=== PATIENT | male | born 1930 | race Caucasian/White ===

== ENCOUNTER 2018-01-29 15:37 | Inpatient (IN) | payer MEDICARE, MEDICAID ==
[2018-01-28 20:45] VITALS: BP 128/81
[~2018-01-29] VITALS: Ht 177.8 cm; Wt 71.7 kg
[~2018-01-29 15:37] MED LIST: ACET-868 PO; CHOL10002 PO; CLOP75TA15 PO; CRAN1TAB3 PO; DOCU100C36 PO; DOCU50LI PO; FERR325T6 PO; LEVO50TA PO; LISI-607 PO; MAGN400O6 PO; METF500T PO; METO25TA20 PO; MULT1CAP34 PO; NA P133E RC; POLY17PO4 PO; PRAZ1CAP2 PO; SIMV20TA2 PO; SITA100T PO
--- NOTE | 2018-01-29 15:40 | NUR ---
PT BIB RA 86 WITH A C/O AMS MORE THAN USUAL. PT IS NOT VERBALIZING, BUT NODDING HEAD TO YES AND NO QUESTIONS. PT HAS 18G IV IN RFA. IV IS PATENT AND BENIGN. BLOOD WAS DRAWN AND STRAIGHT CATH DONE. APPROX 125 ML YELLOW URINE OUTPUT NOTED. SAMPLE SENT TO LAB. DR. RICHARDS IS AT THE BEDSIDE SPEAKING TO THE PT. PT IS ON THE MONITOR AND CONTINUOUS PULSE OX. PT IS ABLE TO MOVE ALL EXTREMITIES. RESP EVEN AND UNLABORED. SKIN IS WARM AND DRY.
[2018-01-29] MEDS ORDERED: AMIN30LI4 PO (16:21)
[2018-01-29] MEDS ORDERED: MULT-447 PO (16:21)
[2018-01-29] MEDS ORDERED: SITA100T PO (16:21)
[2018-01-29] MEDS ORDERED: LEVO88TA5 PO (16:21)
--- NOTE | 2018-01-29 16:22 | NUR ---
Any horton in ED - 01/29/18 at 1623 by AL PT APPEARS TO BE RESTING COMFORTABLY. NO S/S OF PAIN OR DISTRESS NOTED.
--- NOTE | 2018-01-29 16:22 | NUR ---
PT APPEARS TO BE RESTING COMFORTABLY. NO S/S OF PAIN OR DISTRESS NOTED.
--- NOTE | 2018-01-29 16:22 | NUR ---
PT APPEARS TO BE RESTING COMFORTABLY. NO S/S OF PAIN OR DISTRESS NOTED.
[2018-01-29 16:24] LABS: APPEARANCE,URINE Clear (CLEAR); BILIRUBIN,URINE Negative (NEGATIVE); BLOOD, URINE Trace-lysed Ery/uL (NEGATIVE); COLOR,URINE Yellow (YELLOW); KETONES,URINE Negative (NEGATIVE); LEUKOCYTE ESTERASE ,URINE Large (NEGATIVE); NITRITE, URINE Negative (NEGATIVE); PROTEIN,URINE Negative (NEGATIVE); UGLUCOSE Negative (NEGATIVE)
[2018-01-29 16:30] LABS: CALCIUM, SERUM 9.2 mg/dL (8.5-10.1); CARBON DIOXIDE 25 mmol/L (21-32); CHLORIDE 103 mmol/L (98-107); CREATININE 1.6 mg/dL (0.6-1.3); GLUCOSE 136 mg/dL (74-106); POTASSIUM 5.1 mmol/L (3.5-5.1); SODIUM SERUM 135 mmol/L (136-145); UREA NITROGEN, BLOOD 41 mg/dL (7-18)
[2018-01-29 16:33] LABS: BACTERIA,URINE Moderate /HPF (None Seen); RBC,URINE 0-3 /HPF (0-2); SQUAMOUS EPITHELIAL CELL,UR Few /HPF (None Seen); WBC,URINE 80-100 /HPF (0-3)
[2018-01-29 16:34] LABS: INR 0.91 (0.85-1.15)
[2018-01-29 16:36] LABS: ALANINE AMINOTRANSFERASE 18 U/L (12-78); ALBUMIN 3.5 g/dL (3.4-5.0); ALKALINE PHOSPHATASE 86 U/L (46-116); ASPARTATE AMINOTRANSFERASE 19 U/L (15-37); BILIRUBIN,DIRECT 0.1 mg/dL (0.0-0.2); BILIRUBIN,TOTAL 0.4 mg/dL (0.2-1.0); TOTAL PROTEIN, SERUM 7.8 g/dL (6.4-8.2)
[2018-01-29 16:37] LABS: BASOPHILS # (AUTO) 0.1 /CMM (0.0-0.2); BASOPHILS % (AUTO) 0.8 % (0.0-2.0); EOSINOPHILS # (AUTO) 0.3 /CMM (0.0-0.7); EOSINOPHILS % (AUTO) 4.1 % (0.0-6.0); HEMATOCRIT 34 % (39-51); HEMOGLOBIN 11.9 g/dL (13.5-17.5); LYMPHOCYTES # (AUTO) 1.6 /CMM (0.8-4.8); LYMPHOCYTES % (AUTO) 25.6 % (20.0-44.0); MEAN CORPUSCULAR HEMOGLOBIN 34 PG (26.0-33.0); MEAN CORPUSCULAR HGB CONC 35 g/dl (31.0-36.0); MEAN CORPUSCULAR VOLUME 98 fL (80-96); MONOCYTES # (AUTO) 0.7 /CMM (0.1-1.30); MONOCYTES % (AUTO) 11.4 % (2.0-12.0); NEUTROPHILS # (AUTO) 3.7 /CMM (1.8-8.9); NEUTROPHILS % (AUTO) 58.1 % (43.0-81.0); PLATELET COUNT (AUTO) 163 /CMM (150-450); RDW COEFFICIENT OF VARIATION 12.9 (11.5-15.0); RED BLOOD CELL COUNT(AUTO) 3.49 MIL/uL (4.5-6.0); WHITE BLOOD COUNT (AUTO) 6.4 K/uL (4.3-11.0)
[2018-01-29 16:38] LABS: TROPONIN I < 0.017 ng/mL (0.00-0.056)
[2018-01-29] MEDS ORDERED: PIPERACILLIN /TAZOBACTAM 2.25 G in IV D5W 50 ML IV ONE (17:00)
--- NOTE | 2018-01-29 17:00 | NUR ---
PT'S SON, YANET SPICER , ARRIVED AND IS SPEAKING TO THE PT. PT IS MALAY SPEAKING
[2018-01-29] MEDS ORDERED: IV NS 0.9% 500 ML BAG IV ONE (17:30)
[2018-01-29] MEDS ORDERED: ASPIRIN 81 MG TAB.CHEW PO ONE (17:30)
[2018-01-29] MEDS ORDERED: ASPIRIN 81 MG TAB.CHEW ONE (17:40)
--- NOTE | 2018-01-29 17:50 | NUR ---
PT TOLERATED PO WELL
--- NOTE | 2018-01-29 18:01 | NUR ---
PT'S SON, YANET CASTILLO, PLEASE CALL WITH ANY UPDATES. [phone] CELL [phone] WORK
--- NOTE | 2018-01-29 18:02 | NUR ---
PT PUREED FOOD.
--- NOTE | 2018-01-29 18:03 | NUR ---
CALLED THE [facility] FOR PUREED DIABETIC DIET.
--- NOTE | 2018-01-29 18:08 | NUR ---
CALLED [facility] [phone]
--- NOTE | 2018-01-29 18:38 | NUR ---
FEEDING PT DINNER.
--- NOTE | 2018-01-29 18:43 | NUR ---
PT ATE A SMALL AMOUNT OF SOUP AND A FEW SPOONFULS OF APPLESAUCE. PT DOES NOT LIKE THE PUREED FOOD. PT IS ABLE FOR MECHANICAL SOFT.
--- NOTE | 2018-01-29 18:46 | NUR ---
PER PT'S SON, PT IS ON A MECHANICAL SOFT DIET HE ONLY HAS ONE TOOTH.
--- NOTE | 2018-01-29 19:06 | NUR ---
REPORT GIVEN TO NIKUNJ BARFIELD FOR SHANNAN.
--- NOTE | 2018-01-29 20:27 | NUR ---
GAVE REPORT TO NIKUNJ JAIME FOR SHANNAN. PT WILL BE GOING TO ROOM 308-2
[2018-01-29 20:50] VITALS: BP 128/81
--- NOTE | 2018-01-29 20:50 | NUR ---
RN NOTES: NEW ADMISSION FROM ER, ACCOMPANIED BY RN VIA SABI SQUIRES, WITH PERIODS OF CONFUSION AND FORGETFULNESS,PER ENDORSEMENT HE WAS ALTERED SINCE 1459PM FROM [facility] BROUGHT BY AMBULANCE BLOOD [id number];NO FAMILY MEMBER AVAILABLE UPON ADMISSION, UNABLE TO GET CORRECT HISTORY AND INFORMATION, SPEAKS PASHTO ONLY WITH LITTLE WELSH,CANNULA ON LAC#18,RECEIVED NS&ZOSYN IV,ALSO ASPIRIN P.O. FROM ER,ORIENTED TO UNIT AND STAFF, FALL,SAFETY AND ASPIRATION PRECAUTION OBSERVED, BED LOW AND LOCKED, INSTRUCT HOW TO USE THE CALL LIGHT AND KEPT WITHIN EASY REACH,BODY ASSESSMENT DONE, SKIN DISCOLORATION NOTED ON THE RIGHT AND LEFT BUTTOCKS ALSO IN LEFT UPPER EXTREMITY, NO BED SORE,NO EDEMA, UPON AUSCULTATION NOTED SLIGHT WHEEZING ON BOTH UPPER LUNG FIELD WITH OCCASIONAL COUGH.NO SOB OR SIGN OF RESPIRATORY DEPRESSION. ABLE TO SLEEP IN FLAT POSITION WITHOUT ANY DIFFICULTY.WILL CONTINUE TO MONITOR AND KEPT IN CLOSE WATCH.
--- NOTE | 2018-01-29 21:30 | NUR ---
RN NOTES: NOTIFIED DR. CUMMINS REGARDING PATIENT, ADMISSION ORDER VERIFIED AND CARRIED OUT,FOR LABS IN THE MORNING,TROPONIN Q6H X2, TO START NS AT 50ML/HR, ROCEPHINE 1 GM Q DAILY AND ZOSYN 3.375MG Q 8H,TO CONTINUE ALL MEDICATION RECON FROM [facility].CARRIED OUT.
[2018-01-29] MEDS ORDERED: IV NS 0.9% 1,000 ML BAG IV SCH (22:30)
[2018-01-29] MEDS ORDERED: PIPERACILLIN /TAZOBACTAM 3.375 G in IV D5W 50 ML IV ONE (23:00)
[2018-01-29] MEDS ORDERED: CEFTRIAXONE 1 G VIAL ONE (23:10)
[2018-01-29] MEDS ORDERED: PIPERACILLIN /TAZOBACTAM 3.375 G VIAL IV ONE (23:11)
[2018-01-29] MEDS: IV NS 0.9% 1,000 ML BAG IV PRN (23:21)
[2018-01-29] MEDS: CEFTRIAXONE 1 G in IV D5W 50 ML IV SCH (23:21)
--- NOTE | 2018-01-29 23:22 | NUR ---
NIKUNJ NOTES: IVF ON NS AT 50 ML/HR STARTED VIA IV PUMP ALSO 1ST DOSE OF ROCEPHINE 1 GRAM GIVEN.
[2018-01-29] MEDS ORDERED: ACETAMINOPHEN 325 MG TABLET PO PRN (23:30)
[2018-01-30] VITALS: BP 150/80
--- NOTE | 2018-01-30 01:17 | NUR ---
RN NOTES: LEFT MESSAGE TO PATIENT SON THAT HE WAS ALREADY ADMITTED IN [facility] MS 3W BED 308-2.
--- NOTE | 2018-01-30 03:53 | NUR ---
RN NOTES: ASLEEP IN THE NIGHT,KEPT ON CLOSE WATCH AND CHECK AT FREQUENT INTERVALS.NOTED ON AND OFF COUGH IN BETWEEN.
[2018-01-30 04:00] VITALS: BP 153/75
[2018-01-30] MEDS ORDERED: PIPERACILLIN /TAZOBACTAM 3.375 G in IV D5W 50 ML IV SCH (05:00)
--- NOTE | 2018-01-30 06:44 | NUR ---
RN NOTES: AFTER MORNING CARE, CLEAN AND CHANGE, GET BACK TO SLEEP AGAIN, ENDORSED FOR CONTINUITY OF CARE, ON DIRECT SUPPORT STAFF MEMBER RATE=65 WITH PVC, CALL LIGHT WITHIN EASY REACH NO CHEST PAIN OR ANY DISCOMFORT FROM THE TIME HE WAS [place] [facility] [place]
[2018-01-30 07:03] VITALS: BP 148/78
--- NOTE | 2018-01-30 07:52 | NUR ---
TELE/RN OPENING NOTE PATIENT IN BED IN STABLE CONDITION. A/O X 1-2 WITH EPISODES OF CONFUSION. NO SIGNS OF ACUTE DISTRESS. NO COMPLAIN OF PAIN OR DISCOMFORT. ON TELE MONITOR WITH SINUS RHYTHM WITH PVC IN MID 60'S. ALL NEEDS ATTENDED TO. CALL LIGHT WITHIN REACH. WILL CONTINUE TO MONITOR TO ENSURE SAFETY.
[2018-01-30 08:09] LABS: BASOPHILS % (AUTO) 0.4 % (0.0-2.0); EOSINOPHILS # (AUTO) 0.4 /CMM (0.0-0.7); EOSINOPHILS % (AUTO) 4.4 % (0.0-6.0); HEMATOCRIT 34 % (39-51); HEMOGLOBIN 11.7 g/dL (13.5-17.5); LYMPHOCYTES # (AUTO) 1.4 /CMM (0.8-4.8); LYMPHOCYTES % (AUTO) 13.6 % (20.0-44.0); MEAN CORPUSCULAR HEMOGLOBIN 35 PG (26.0-33.0); MEAN CORPUSCULAR HGB CONC 35 g/dl (31.0-36.0); MEAN CORPUSCULAR VOLUME 98 fL (80-96); MONOCYTES # (AUTO) 0.8 /CMM (0.1-1.30); MONOCYTES % (AUTO) 7.8 % (2.0-12.0); NEUTROPHILS # (AUTO) 7.4 /CMM (1.8-8.9); NEUTROPHILS % (AUTO) 73.8 % (43.0-81.0); RDW COEFFICIENT OF VARIATION 13.7 (11.5-15.0)
[2018-01-30 08:26] LABS: CALCIUM, SERUM 8.5 mg/dL (8.5-10.1); CARBON DIOXIDE 23 mmol/L (21-32); CHLORIDE 108 mmol/L (98-107); CREATININE 1.5 mg/dL (0.6-1.3); GLUCOSE 94 mg/dL (74-106); MAGNESIUM 1.9 mg/dL (1.8-2.4); PHOSPHORUS 3.2 mg/dL (2.5-4.9); POTASSIUM 4.3 mmol/L (3.5-5.1); SODIUM SERUM 139 mmol/L (136-145); UREA NITROGEN, BLOOD 35 mg/dL (7-18)
[2018-01-30 08:27] LABS: PLATELET COUNT (AUTO) 162 /CMM (150-450)
[2018-01-30] MEDS: PROSOURCE / PROSTAT (PYXIS) 30 ML UDC PO SCH (08:49)
[2018-01-30] MEDS: METOPROLOL TARTRATE 25 MG TABLET PO SCH ×2 (08:49→21:03)
[2018-01-30] MEDS: PRAZOSIN HCL 1 MG CAPSULE PO SCH (08:50)
[2018-01-30] MEDS: LISINOPRIL (5MG) 5 MG TABLET PO SCH (08:50)
[2018-01-30] MEDS: LEVOTHYROXINE SODIUM 88 MCG TABLET PO SCH (08:50)
[2018-01-30] MEDS: CLOPIDOGREL BISULFATE 75 MG TABLET PO SCH (08:50)
[2018-01-30] MEDS: CHOLECALCIFEROL 1,000 UNIT TABLET (VIT D3) PO SCH (08:50)
[2018-01-30] MEDS ORDERED: METFORMIN 500 MG TABLET PO SCH ×2 (09:00→17:00)
[2018-01-30 11:23] LABS: THYROID STIMULATING HORMONE 3.853 uIU/mL (0.358-3.74)
[2018-01-30] MEDS: PIPERACILLIN /TAZOBACTAM 2.25 G in IV D5W 50 ML IV SCH ×2 (12:40→17:12)
[2018-01-30] MEDS ORDERED: ACETAMINOPHEN 325 MG TABLET PO PRN (14:00)
[2018-01-30 16:00] VITALS: BP 100/63
[2018-01-30] MEDS ORDERED: METOPROLOL TARTRATE 25 MG TABLET PO SCH (17:00)
[2018-01-30] MEDS: LACTOBACILLUS RHAMNOSUS GG 1 EACH CAP.SPRINK PO SCH (17:12)
--- NOTE | 2018-01-30 18:34 | NUR ---
MS/RN CLOSING NOTE PATIENT IN BED IN STABLE CONDITION. A/O X 1-2, BAHAMIAN SPEAKING. NO SIGNS OF ACUTE DISTRESS. NO COMPLAIN OF PAIN OR DISCOMFORT. ALL NEEDS ATTENDED TO. CALL LIGHT WITHIN REACH. WILL ENDORSE TO NEXT SHIFT FOR CONTINUITY OF CARE.
--- NOTE | 2018-01-30 19:30 | NUR ---
MS RN OPENING NOTES: PATIENT IN BED, AOX1, ON ROOM AIR, BREATHING EVEN AND UNLABORED, BREATH SOUNDS CLEAR TO AUSCULTATION. APPEARS CALM AND IN NO DISTRESS, WATCHING TV, DENIES PAIN. PIV OVER RFA G 18 INTACT AND PATENT, INFUSING WELL WITH NS RUNNING AT 50 ML/HR. PROVIDED FOR COMFORT AND SAFETY. BED IN LOWEST AND LOCKED POSITION, SIDERAILS UP X 3, BED ALARMS ON. WILL CONT TO MONITOR.
[2018-01-30 20:00] VITALS: BP 132/58
[2018-01-30] MEDS: IV NS 0.9% 1,000 ML BAG IV PRN (20:54)
[2018-01-30] MEDS: POLYETHYLENE GLYCOL 3350 17 GM POWD.PACK PO SCH (21:02)
[2018-01-30] MEDS: SIMVASTATIN 20 MG TABLET PO SCH (21:02)
[2018-01-30] MEDS ORDERED: SIMVASTATIN 20 MG TABLET PO SCH (22:00)
[2018-01-30] MEDS: CEFTRIAXONE 1 G in IV D5W 50 ML IV SCH (23:03)
[2018-01-31] MEDS: PIPERACILLIN /TAZOBACTAM 2.25 G in IV D5W 50 ML IV SCH ×4 (00:01→16:54)
[2018-01-31] MEDS ORDERED: Z GUARD REMEDY 2 OZ OINT TP PRN (03:30)
[2018-01-31] MEDS ORDERED: IV NS 0.9% 1,000 ML IV PRN (03:30)
[2018-01-31 05:41] LABS: BASOPHILS # (AUTO) 0.1 /CMM (0.0-0.2); BASOPHILS % (AUTO) 0.6 % (0.0-2.0); EOSINOPHILS # (AUTO) 0.5 /CMM (0.0-0.7); EOSINOPHILS % (AUTO) 5.4 % (0.0-6.0); HEMATOCRIT 32 % (39-51); HEMOGLOBIN 11.1 g/dL (13.5-17.5); LYMPHOCYTES # (AUTO) 2.3 /CMM (0.8-4.8); LYMPHOCYTES % (AUTO) 26.5 % (20.0-44.0); MEAN CORPUSCULAR HEMOGLOBIN 34 PG (26.0-33.0); MEAN CORPUSCULAR HGB CONC 35 g/dl (31.0-36.0); MEAN CORPUSCULAR VOLUME 99 fL (80-96); MONOCYTES % (AUTO) 10.9 % (2.0-12.0); NEUTROPHILS % (AUTO) 56.6 % (43.0-81.0); RDW COEFFICIENT OF VARIATION 13.5 (11.5-15.0); RED BLOOD CELL COUNT(AUTO) 3.24 MIL/uL (4.5-6.0); WHITE BLOOD COUNT (AUTO) 8.9 K/uL (4.3-11.0)
[2018-01-31 05:49] LABS: CALCIUM, SERUM 8.5 mg/dL (8.5-10.1); CARBON DIOXIDE 26 mmol/L (21-32); CHLORIDE 110 mmol/L (98-107); CREATININE 1.7 mg/dL (0.6-1.3); GLUCOSE 91 mg/dL (74-106); MAGNESIUM 1.9 mg/dL (1.8-2.4); PHOSPHORUS 3.4 mg/dL (2.5-4.9); POTASSIUM 4.6 mmol/L (3.5-5.1); SODIUM SERUM 144 mmol/L (136-145); UREA NITROGEN, BLOOD 35 mg/dL (7-18)
[2018-01-31 06:14] LABS: PLATELET COUNT (AUTO) 165 /CMM (150-450)
--- NOTE | 2018-01-31 06:59 | NUR ---
MS RN CLOSING NOTES: PATIENT IN BED, AOX1, ON ROOM AIR, BREATHING EVEN AND UNLABORED. APPEARS CALM AND IN NO DISTRESS. PIV OVER RFA G 18 INTACT AND PATENT, INFUSING WELL WITH NS RUnNING AT 50 ML/HR. PROVIDED FOR COMFORT AND SAFETY. BED IN LOWEST AND LOCKED POSITION, SIDERAILS UP X 3. NO ACUTE CHANGE IN CONDITION NOTED THROUGH SHIFT. WILL ENDORSE TO AM RN FOR SHANNAN.
[2018-01-31] MEDS ORDERED: LEVOTHYROXINE SODIUM 88 MCG TABLET PO SCH (07:30)
--- NOTE | 2018-01-31 07:40 | NUR ---
MS/RN OPENING NOTE PATIENT IN BED IN STABLE CONDITION. A/O X 1-2, TANZANIAN SPEAKING. NO SIGNS OF ACUTE DISTRESS. NO COMPLAIN OF PAIN OR DISCOMFORT. ALL NEEDS ATTENDED TO. SITTER AT BEDSIDE. CALL LIGHT WITHIN REACH. WILL CONTINUE TO MONITOR TO ENSURE SAFETY.
[2018-01-31] MEDS: PROSOURCE / PROSTAT (PYXIS) 30 ML UDC PO SCH (08:06)
[2018-01-31] MEDS: LINAGLIPTIN 5 MG TABLET PO SCH (08:07)
[2018-01-31] MEDS: LEVOTHYROXINE SODIUM 88 MCG TABLET PO SCH (08:07)
[2018-01-31] MEDS: LACTOBACILLUS RHAMNOSUS GG 1 EACH CAP.SPRINK PO SCH ×2 (08:07→16:54)
[2018-01-31] MEDS: CHOLECALCIFEROL 1,000 UNIT TABLET (VIT D3) PO SCH (08:07)
[2018-01-31] MEDS: PRAZOSIN HCL 1 MG CAPSULE PO SCH (08:07)
[2018-01-31] MEDS: LISINOPRIL (5MG) 5 MG TABLET PO SCH (08:07)
[2018-01-31] MEDS: CLOPIDOGREL BISULFATE 75 MG TABLET PO SCH (08:07)
[2018-01-31] MEDS: METOPROLOL TARTRATE 25 MG TABLET PO SCH ×2 (08:08→21:14)
[2018-01-31] MEDS: MULTIVIT, IRON, MIN NO. 8, FA 1 TAB PO SCH (08:11)
[2018-01-31] MEDS ORDERED: PROSOURCE / PROSTAT (PYXIS) 30 ML UDC PO SCH (09:00)
[2018-01-31] MEDS ORDERED: LISINOPRIL (5MG) 5 MG TABLET PO SCH (09:00)
[2018-01-31] MEDS ORDERED: CLOPIDOGREL BISULFATE 75 MG TABLET PO SCH (09:00)
[2018-01-31] MEDS ORDERED: CHOLECALCIFEROL 1,000 UNIT TABLET (VIT D3) PO SCH (09:00)
[2018-01-31] MEDS ORDERED: PRAZOSIN HCL 1 MG CAPSULE PO SCH (09:00)
[2018-01-31] MEDS ORDERED: POLYETHYLENE GLYCOL 3350 17 GM POWD.PACK PO SCH (11:00)
[2018-01-31 17:45] VITALS: BP 136/76
[2018-01-31 17:46] VITALS: BP 134/81
--- NOTE | 2018-01-31 18:12 | NUR ---
MS/RN CLOSING NOTE PATIENT IN BED IN STABLE CONDITION. A/O X 1-2 NIUEAN SPEAKING. NO SIGNS OF ACUTE DISTRESS. NO COMPLAIN OF PAIN OR DISCOMFORT. ALL NEEDS ATTENDED TO. CALL LIGHT WITHIN REACH. WILL ENDORSE TO NEXT SHIFT FOR CONTINUITY OF CARE.
--- NOTE | 2018-01-31 19:20 | NUR ---
RN OPEN NOTES RECEIVED PATIENT AWAKE IN BED. A/O X1. NO SIGNS OF DISTRESS OR DISCOMFORT. BREATHING EVEN AND UNLABORED. IV ACCESS IN RFA WITH NS INFUSING, PATENT AND INTACT, NO SIGNS OF REDNESS OR INFILTRATION. BED IN LOW LOCKED POSITION WITH SIDE RAILS X2. CALL LIGHT WITHIN REACH. WILL CONTINUE TO MONITOR.
[2018-01-31 20:00] VITALS: BP 135/69
[2018-01-31] MEDS: POLYETHYLENE GLYCOL 3350 17 GM POWD.PACK PO SCH (21:15)
[2018-01-31] MEDS: SIMVASTATIN 20 MG TABLET PO SCH (21:15)
[2018-01-31] MEDS: CEFTRIAXONE 1 G in IV D5W 50 ML IV SCH (22:21)
[2018-02-01] MEDS: PIPERACILLIN /TAZOBACTAM 2.25 G in IV D5W 50 ML IV SCH ×4 (00:38→17:00)
--- NOTE | 2018-02-01 06:53 | NUR ---
RN CLOSING NOTES PATIENT RESTING IN BED, EASILY AROUSABLE. A/O X1. NO SIGNS OF DISTRESS OR DISCOMFORT. BREATHING EVEN AND UNLABORED. IV ACCESS IN RFA WITH NS INFUSING, PATENT AND INTACT, NO SIGNS OF REDNESS OR INFILTRATION. ALL NEEDS MET. NO SIGNIFICANT CHANGES THROUGH THE NIGHT. BED IN LOW LOCKED POSITION WITH SIDE RAILS X2. CALL LIGHT WITHIN REACH. WILL ENDORSE TO AM SHIFT FOR SHANNAN.
[2018-02-01] MEDS: LEVOTHYROXINE SODIUM 88 MCG TABLET PO SCH (07:30)
--- NOTE | 2018-02-01 07:51 | NUR ---
MS RN OPENING NOTE PATIENT IS ALERT AND ORIENTED x1, PERIODS OF CONFUSION. NO FACIAL GRIMACING NOTED FOR PAIN. NO SOB OR DISTRESS NOTED. CALL LIGHT WITHIN REACH. SAFETY MEASURES IMPLEMENTED. ON ROOM AIR TOLERATING WELL AT 98%. IV INTACT AND PATENT NO REDNESS OR SWELLING WITH IV FLUIDS AT 70 ML/HR TOLERATING WELL. WILL CONTINUE TO MONITOR THROUGHOUT SHIFT
[2018-02-01 08:00] VITALS: BP 156/82
[2018-02-01 08:02] LABS: BASOPHILS % (AUTO) 0.4 % (0.0-2.0); EOSINOPHILS # (AUTO) 0.5 /CMM (0.0-0.7); EOSINOPHILS % (AUTO) 5.6 % (0.0-6.0); HEMATOCRIT 34 % (39-51); HEMOGLOBIN 11.7 g/dL (13.5-17.5); LYMPHOCYTES # (AUTO) 2.3 /CMM (0.8-4.8); LYMPHOCYTES % (AUTO) 23.7 % (20.0-44.0); MEAN CORPUSCULAR HEMOGLOBIN 34 PG (26.0-33.0); MEAN CORPUSCULAR HGB CONC 35 g/dl (31.0-36.0); MEAN CORPUSCULAR VOLUME 99 fL (80-96); MONOCYTES # (AUTO) 0.9 /CMM (0.1-1.30); MONOCYTES % (AUTO) 9.9 % (2.0-12.0); NEUTROPHILS # (AUTO) 5.7 /CMM (1.8-8.9); NEUTROPHILS % (AUTO) 60.4 % (43.0-81.0); RDW COEFFICIENT OF VARIATION 13.4 (11.5-15.0); RED BLOOD CELL COUNT(AUTO) 3.42 MIL/uL (4.5-6.0); WHITE BLOOD COUNT (AUTO) 9.5 K/uL (4.3-11.0)
[2018-02-01 08:09] LABS: PLATELET COUNT (AUTO) 169 /CMM (150-450)
[2018-02-01 08:13] LABS: CALCIUM, SERUM 8.5 mg/dL (8.5-10.1); CARBON DIOXIDE 22 mmol/L (21-32); CHLORIDE 106 mmol/L (98-107); CREATININE 1.7 mg/dL (0.6-1.3); GLUCOSE 92 mg/dL (74-106); PHOSPHORUS 3.3 mg/dL (2.5-4.9); POTASSIUM 4.3 mmol/L (3.5-5.1); SODIUM SERUM 140 mmol/L (136-145); UREA NITROGEN, BLOOD 30 mg/dL (7-18)
[2018-02-01] MEDS: LACTOBACILLUS RHAMNOSUS GG 1 EACH CAP.SPRINK PO SCH ×2 (09:21→16:56)
[2018-02-01] MEDS: CLOPIDOGREL BISULFATE 75 MG TABLET PO SCH (09:21)
[2018-02-01] MEDS: CHOLECALCIFEROL 1,000 UNIT TABLET (VIT D3) PO SCH (09:21)
[2018-02-01] MEDS: MULTIVIT, IRON, MIN NO. 8, FA 1 TAB PO SCH (09:21)
[2018-02-01] MEDS: LINAGLIPTIN 5 MG TABLET PO SCH (09:21)
[2018-02-01] MEDS: LISINOPRIL (5MG) 5 MG TABLET PO SCH (09:22)
[2018-02-01] MEDS: PRAZOSIN HCL 1 MG CAPSULE PO SCH (09:22)
[2018-02-01] MEDS: METOPROLOL TARTRATE 25 MG TABLET PO SCH (09:23)
[2018-02-01] MEDS: PROSOURCE / PROSTAT (PYXIS) 30 ML UDC PO SCH (09:23)
[2018-02-01 16:00] VITALS: BP 131/66
--- NOTE | 2018-02-01 17:56 | NUR ---
MS LINTING MACHINE OPERATOR NOTE PATIENT IS ALERT AND ORIENTED x1, CONFUSED. NO FACIAL GRIMACING NOTED FOR PAIN. NO SOB OR DISTRESS NOTED. CALL LIGHT WITHIN REACH AT ALL TIMES. SAFETY MEASURES IMPLEMENTED. ALL DUE MEDICATIONS GIVEN ORDERED. ALL NURSING CARE NEEDS ATTENDED TO NEEDED. IV LEFT IN PER RN AT [facility]. WILL BE ON IV ANTIBIOTICS. ALL SKIN PICTURES DOCUMENTED. ALL DISCHARGE INSTRUCTIONS GIVEN TO NIKUNJ ESTRADA AT [facility]. ALL INSTRUCTIONS RECEIVED BACK. MEDICATION LIST SENT TO RN. LEFT VIA AMBULANCE. VALERIA HOLT JR. INFORMED ABOUT DISCHARGE AND TRANSFER
== END 2018-02-01 17:45 | DRG 205 ==
LOC: ER 15:38 → MED 20:41 → TELE 22:10 → MED 01-30 08:43
PROVIDERS: ADMIT Internal Medicine; ATTEND Internal Medicine Nephrology
DX: M94.0 Chondrocostal junction syndrome [Tietze] (principal); N17.0 Acute kidney failure with tubular necrosis; G93.40 Encephalopathy, unspecified; G93.89 Other specified disorders of brain; D64.9 Anemia, unspecified; E11.9 Type 2 diabetes mellitus without complications; N39.0 Urinary tract infection, site not specified; H70.91 Unspecified mastoiditis, right ear; E03.9 Hypothyroidism, unspecified; E78.5 Hyperlipidemia, unspecified; E86.9 Volume depletion, unspecified; I25.10 Atherosclerotic heart disease of native coronary artery without angina pectoris; F03.90 Unspecified dementia, unspecified severity, without behavioral disturbance, psychotic disturbance, mood disturbance, and anxiety; I10 Essential (primary) hypertension; M46.00 Spinal enthesopathy, site unspecified; F29 Unspecified psychosis not due to a substance or known physiological condition; Z79.899 Other long term (current) drug therapy; Z79.84 Long term (current) use of oral hypoglycemic drugs; I70.0 Atherosclerosis of aorta
CPT/HCPCS: 36415; 70450-TC; 71045-TC; 80048-TC; 80076-TC; 81000-TC; 82962-TC; 83605-TC; 83735-TC; 84100-TC; 84443-TC; 84484-TC; 85025-TC; 85730-TC; 87040-TC; 87081-TC; 87086-TC; A4606; J0696; J2543; J7030; J7040; J7042; J7060; Z7610

== ENCOUNTER 2018-05-21 11:18 | Inpatient (IN) | payer MEDICARE, OTHER ==
[~2018-05-21] VITALS: Ht 177.8 cm; Wt 71.7 kg
[~2018-05-21 11:18] MED LIST changes: +AMIN30LI4 PO; -DOCU100C36 PO; -DOCU50LI PO; -FERR325T6 PO; -LEVO50TA PO; +LEVO88TA5 PO; -MAGN400O6 PO; +MULT-447 PO; -MULT1CAP34 PO; -NA P133E RC
[2018-05-21] MEDS ORDERED: IV NS 0.9% 1,000 ML BAG IV ONE (11:30)
[2018-05-21 11:41] LABS: BASOPHILS % (AUTO) 0.4 % (0.0-2.0); EOSINOPHILS % (AUTO) 4.3 % (0.0-6.0); HEMATOCRIT 35 % (39-51); LYMPHOCYTES # (AUTO) 1.6 /CMM (0.8-4.8); LYMPHOCYTES % (AUTO) 24.8 % (20.0-44.0); MEAN CORPUSCULAR HGB CONC 35 g/dl (31.0-36.0); MEAN CORPUSCULAR VOLUME 97 fL (80-96); MONOCYTES # (AUTO) 0.6 /CMM (0.1-1.30); MONOCYTES % (AUTO) 9.2 % (2.0-12.0); NEUTROPHILS # (AUTO) 4.1 /CMM (1.8-8.9); NEUTROPHILS % (AUTO) 61.3 % (43.0-81.0); PLATELET COUNT (AUTO) 149 /CMM (150-450); RDW COEFFICIENT OF VARIATION 12.6 (11.5-15.0); RED BLOOD CELL COUNT(AUTO) 3.59 MIL/uL (4.5-6.0); WHITE BLOOD COUNT (AUTO) 6.6 K/uL (4.3-11.0)
[2018-05-21] MEDS ORDERED: NA P133E RC (11:42)
[2018-05-21] MEDS ORDERED: MAGN400O6 PO (11:42)
[2018-05-21] MEDS ORDERED: LINA5TAB PO (11:42)
[2018-05-21] MEDS ORDERED: ACID1TAB12 PO (11:42)
[2018-05-21] MEDS ORDERED: LIDOCAINE 2% JEL UROJET 10 ML MM ONE (11:54)
[2018-05-21 11:57] LABS: INR 0.94 (0.85-1.15)
[2018-05-21 11:59] LABS: ALANINE AMINOTRANSFERASE 18 U/L (12-78); ALBUMIN 3.2 g/dL (3.4-5.0); ALKALINE PHOSPHATASE 78 U/L (46-116); ASPARTATE AMINOTRANSFERASE 16 U/L (15-37); BILIRUBIN,DIRECT 0.1 mg/dL (0.0-0.2); BILIRUBIN,TOTAL 0.4 mg/dL (0.2-1.0); CALCIUM, SERUM 8.8 mg/dL (8.5-10.1); CARBON DIOXIDE 22 mmol/L (21-32); CHLORIDE 101 mmol/L (98-107); CREATININE 1.8 mg/dL (0.6-1.3); GLUCOSE 186 mg/dL (74-106); POTASSIUM 4.5 mmol/L (3.5-5.1); SODIUM SERUM 131 mmol/L (136-145); UREA NITROGEN, BLOOD 39 mg/dL (7-18)
[2018-05-21 12:01] LABS: TROPONIN I < 0.017 ng/mL (0.00-0.056)
[2018-05-21 12:09] LABS: APPEARANCE,URINE Clear (CLEAR); BILIRUBIN,URINE Negative (NEGATIVE); BLOOD, URINE Small Ery/uL (NEGATIVE); COLOR,URINE Yellow (YELLOW); KETONES,URINE Negative (NEGATIVE); LEUKOCYTE ESTERASE ,URINE Negative (NEGATIVE); NITRITE, URINE Negative (NEGATIVE); PROTEIN,URINE Negative (NEGATIVE); UGLUCOSE Negative (NEGATIVE); UROBILINOGEN,URINE 0.2 EU/dL (0.2)
--- NOTE | 2018-05-21 12:16 | NUR ---
DR.RABBANI SMART
[2018-05-21 12:28] LABS: BACTERIA,URINE Moderate /HPF (None Seen); SQUAMOUS EPITHELIAL CELL,UR Few /HPF (None Seen)
[2018-05-21 12:29] LABS: WBC,URINE 0-2 /HPF (0-3)
[2018-05-21] MEDS ORDERED: LEVOFLOXACIN 750 MG /D5W 150ML PIGGYBACK IV ONE (12:30)
[2018-05-21] MEDS ORDERED: VANCOMYCIN 1 GM in IV D5W 250 ML IV ONE (12:30)
[2018-05-21] MEDS ORDERED: LEVOFLOXACIN 750 MG /D5W 150ML 750 MG in PREMIX 1 EA IV ONE (12:30)
--- NOTE | 2018-05-21 12:33 | NUR ---
CALLED NURSING SUP. FOR TELE BED
--- NOTE | 2018-05-21 12:47 | NUR ---
DR. ORELLANA REPAGED
--- NOTE | 2018-05-21 13:06 | NUR ---
TELE 321-2 FOR PNEUMONIA, ADMITTING
--- NOTE | 2018-05-21 13:27 | NUR ---
REPORT GIVEN TO NIKUNJ OSPINA BED 321-T
[2018-05-21 14:00] VITALS: BP 99/66
--- NOTE | 2018-05-21 14:00 | NUR ---
CHLOROBUTADIENE SCRUBBER OPERATOR NOTE PT ARRIVED VIA GURNEY TO TELE BED ACCOMPANIED BY ER STAFF IN STABLE CONDITION. PT IS A/O X1-2, CONFUSED, YORUBA SPEAKING. AFEBRILE, RESPIRATIONS ARE EVEN AND UNLABORED, NOT IN ANY ACUTE DISTRESS NOTED. PUPILS ARE REACTIVE TO LIGHT. BILATERAL HAND MARKETING LEAD ARE STRONG AND EQUAL. PT DENIES ANY PAIN AT THIS TIME, NO SOB, N/V NOTED. IV ACCESS TO RAC 18G, INTACT, NO INFILTRATION NOTED. DRESSING KEPT CLEAN AND DRY. LUNG SOUNDS ARE CLEAR TO AUSCULTATION WITH SOME WHEEZING TO UPPER LOBES. PT TOLERATING RA,SATURATING 96%. ABDOMEN IS SOFT AND NONDISTENDED, BOWEL SOUNDS ARE CLEAR UPON AUSCULTATION. DENIES ANY BLADDER DISCOMFORT. PT IS CONTINENT AND REQUIRES ASSISTANCE. SAFETY MEASURES ARE IN PLACE. BED IS IN ITS LOWEST AND LOCKED POSITION. INSTRUCTED PT TO USE CALL LIGHT WHEN ASSISTANCE IS NEEDED, CALL LIGHT IS LEFT WITHIN REACH. WILL CONTINUE TO MONITOR THROUGHOUT SHIFT FOR CONTINUITY OF CARE.
--- NOTE | 2018-05-21 14:30 | NUR ---
GRANTS ASSISTANT NOTES CALLED [facility] DR. CANTOR IS THE ADMITTING DOCTOR, WAITING A CALL BACK.
--- NOTE | 2018-05-21 14:54 | NUR ---
BENCH MACHINE OPERATOR NOTES RECEIVED A CALL BACK FROM DR. CANTOR TO RESUME ALL HOME MEDICATIONS, D5NS @75 ML/HR, ZOSYN IV PHARMACY TO DOSE, CBC/BMP IN AM. ORDERS READ BACK AND VERIFIED. NOTED AND CARRIED OUT.
[2018-05-21 15:33] VITALS: BP 99/66
[2018-05-21] MEDS: IV D5/ 0.9% NACL 1,000 ML IV PRN (15:38)
[2018-05-21] MEDS ORDERED: ACETAMINOPHEN 325 MG TABLET PO PRN (16:00)
[2018-05-21] MEDS ORDERED: NA PHOS,M-B/NA PHOS,DI-BA 1 EA ENEMA RC PRN (16:00)
[2018-05-21] MEDS: PIPERACILLIN /TAZOBACTAM 2.25 G in IV NS 0.9% 50 ML IV SCH (17:12)
[2018-05-21] MEDS: ACIDOPHILUS/BULGARICUS 1 EACH TAB.CHEW PO SCH (17:12)
--- NOTE | 2018-05-21 18:24 | NUR ---
NURSE AIDE CLOSING NOTES ALL DUE MEDS GIVEN, NEEDS MET AND RENDERED. AWAKE AND RESPONSIVE, RESPIRATIONS ARE EVEN AND UNLABORED, NOT IN ANY ACUTE DISTRESS NOTED. PT DENIES ANY PAIN, NO C/O SOB, N/V. IV ACCESS TO RAC INTACT, NO INFILTRATION NOTED. DRESSING KEPT CLEAN AND DRY. IV FLUIDS INFUSING AND TOLERATING WELL. SAFETY MEASURES ARE IN PLACE. WILL ENDORSE TO NEXT SHIFT FOR CONTINUITY OF CARE.
--- NOTE | 2018-05-21 19:15 | NUR ---
MS/PLUGGER MAN OPENING NOTE Patient was seen lying in bed AAOx1, breathing on RA with no SOB, and no signs of acute distress. D5NS is running at 75ml/hr through the right AC. Bed is in the low/locked position, two side rails up, bed alarm on, and call fall within reach. Patient has no immediate needs or concerns at this time. Will continue to monitor.
[2018-05-21 20:00] VITALS: BP 102/57
[2018-05-21] MEDS: METOPROLOL TARTRATE 25 MG TABLET PO SCH (21:00)
[2018-05-21] MEDS: SIMVASTATIN 20 MG TABLET PO SCH (21:05)
[2018-05-21] MEDS ORDERED: MAGNESIUM HYDROXIDE 30 ML UDC PO PRN (22:00)
[2018-05-22] VITALS: BP 132/75
[2018-05-22] MEDS: PIPERACILLIN /TAZOBACTAM 2.25 G in IV NS 0.9% 50 ML IV SCH ×5 (00:26→23:19)
[2018-05-22 04:00] VITALS: BP 151/76
[2018-05-22] MEDS: IV D5/ 0.9% NACL 1,000 ML IV PRN ×2 (06:02→17:32)
[2018-05-22 07:05] LABS: BASOPHILS % (AUTO) 0.4 % (0.0-2.0); EOSINOPHILS % (AUTO) 4.7 % (0.0-6.0); HEMATOCRIT 34 % (39-51); HEMOGLOBIN 11.4 g/dL (13.5-17.5); LYMPHOCYTES # (AUTO) 1.6 /CMM (0.8-4.8); LYMPHOCYTES % (AUTO) 19.7 % (20.0-44.0); MEAN CORPUSCULAR HGB CONC 34 g/dl (31.0-36.0); MEAN CORPUSCULAR VOLUME 100 fL (80-96); MONOCYTES # (AUTO) 0.8 /CMM (0.1-1.30); MONOCYTES % (AUTO) 10.5 % (2.0-12.0); NEUTROPHILS # (AUTO) 5.2 /CMM (1.8-8.9); NEUTROPHILS % (AUTO) 64.7 % (43.0-81.0); RDW COEFFICIENT OF VARIATION 13.5 (11.5-15.0); RED BLOOD CELL COUNT(AUTO) 3.37 MIL/uL (4.5-6.0); WHITE BLOOD COUNT (AUTO) 8.1 K/uL (4.3-11.0)
[2018-05-22 07:15] LABS: PLATELET COUNT (AUTO) 158 /CMM (150-450)
--- NOTE | 2018-05-22 07:22 | NUR ---
MS/CIVIL ENGINEER IN TRAINING CLOSING NOTE Patient was seen lying in bed AAOx1, breathing on RA with no SOB, and no signs of acute distress. Telemonitor shows a-fib in the 60s. Patient slept well overnight with no complaints and no events. Patient remains in stable condition. D5NS is running at 75ml/hr through the right AC, which is covered with an arm sleeve to prevent the patient from pulling at lines. Bed is in the low/locked position, two side rails up, bed alarm on, and call fall within reach. Patient care endorsed to day shift RN.
[2018-05-22 07:36] LABS: CALCIUM, SERUM 8.8 mg/dL (8.5-10.1); CARBON DIOXIDE 22 mmol/L (21-32); CHLORIDE 105 mmol/L (98-107); CREATININE 1.8 mg/dL (0.6-1.3); GLUCOSE 108 mg/dL (74-106); POTASSIUM 4.7 mmol/L (3.5-5.1); SODIUM SERUM 136 mmol/L (136-145); UREA NITROGEN, BLOOD 34 mg/dL (7-18)
--- NOTE | 2018-05-22 07:44 | NUR ---
MS RN OPENING NOTE RECEIVED PATIENT IN BED, ALERT ORIENTED X 1-2, CONFUSED. ON ROOM AIR, TOLERATING WELL. DENIES PAIN AND SOB. RESPIRATIONS EVEN AND UNLABORED, IN NO APPARENT DISTRESS OR DISCOMFORT AT THIS TIME. PATIENT IS LITHUANIAN SPEAKING. RAC 18G IVC WITH D5NS RUNNING AT 75ML/HR. PATENT AND INTACT, NO SIGN OF INFILTRATION NOTED. PATIENT IS INCONTINENT WITH DIAPER. ON BED RES. TELE MONITORING IN PLACE HR SINUS RHYTHM IN 60S.ALL NEEDS ATTENDED, KEPT CLEAN AND COMFORTABLE, SAFETY MEASURES IN PLACE, BED IN LOW LOCKED POSITION, SIDE RAILS UP X2, CALL LIGHT WITHIN EASY REACH. WILL CONTINUE TO MONITOR.
[2018-05-22 08:00] VITALS: BP 131/60
[2018-05-22] MEDS: CLOPIDOGREL BISULFATE 75 MG TABLET PO SCH (08:40)
[2018-05-22] MEDS: ACIDOPHILUS/BULGARICUS 1 EACH TAB.CHEW PO SCH ×2 (08:40→17:31)
[2018-05-22] MEDS: LISINOPRIL (5MG) 5 MG TABLET PO SCH (08:41)
[2018-05-22] MEDS: LEVOTHYROXINE SODIUM 88 MCG TABLET PO SCH (08:41)
[2018-05-22] MEDS: LINAGLIPTIN 5 MG TABLET PO SCH (08:42)
[2018-05-22] MEDS: PRAZOSIN HCL 1 MG CAPSULE PO SCH (08:42)
[2018-05-22] MEDS: PROSOURCE / PROSTAT (PYXIS) 30 ML UDC GT SCH (08:43)
[2018-05-22] MEDS: MULTIVIT, IRON, MIN NO. 8, FA 1 TAB PO SCH (08:43)
[2018-05-22] MEDS: CHOLECALCIFEROL 1,000 UNIT TABLET (VIT D3) PO SCH (08:43)
--- NOTE | 2018-05-22 09:00 | NUR ---
PATIENT REFUSED BREAKFAST AT THIS TIME.
[2018-05-22] MEDS: METOPROLOL TARTRATE 25 MG TABLET PO SCH ×2 (09:59→21:12)
[2018-05-22] MEDS: POLYETHYLENE GLYCOL 3350 17 GM POWD.PACK PO SCH (11:26)
[2018-05-22 16:00] VITALS: BP_SYST 119; BP_DIAS 50; BP_DIAS 66
--- NOTE | 2018-05-22 18:45 | NUR ---
MS RN CLOSING NOTE PATIENT IN BED, ALERT ORIENTED X 1-2, CONFUSED, BUT COOPERATIVE. REPLIES TO SIMPLE QUESTIONS IF SPOKEN TO IN FAROESE. ON ROOM AIR, TOLERATING WELL. DENIES PAIN, NO SIGN OF SOB. RESPIRATIONS EVEN AND UNLABORED, IN NO APPARENT DISTRESS OR DISCOMFORT AT THIS TIME. PATIENT IS FAROESE SPEAKING. RAC 18G IVC WITH D5NS RUNNING AT 75ML/HR. PATENT AND INTACT, NO SIGN OF INFILTRATION NOTED. PATIENT IS INCONTINENT WITH DIAPER. ON BED REST. ALL NEEDS ATTENDED, KEPT CLEAN AND COMFORTABLE, SAFETY MEASURES IN PLACE, BED IN LOW LOCKED POSITION, SIDE RAILS UP X2, CALL LIGHT WITHIN EASY REACH. WILL ENDORSE TO AM NURSE FOR SHANNAN.
--- NOTE | 2018-05-22 19:15 | NUR ---
RN OPENING NOTES PT AWAKE AND RESTING IN BED. PT PRIMARILY SUDANESE SPEAKER. NO COMPLAINTS OF PAIN, SOB, OR DISTRESS AT THIS TIME. PT HAS A RIGHT AC #18 RUNNING D5NS @75ML/HR, PT TOLERATING FLUIDS WELL. SAFETY PRECAUTIONS IN PLACE. BED IN LOWEST LOCKED POSITION, X2 SIDE RAILS UP, AND CALL LIGHT WITHIN REACH. WILL CONTINUE TO MONITOR.
[2018-05-22 20:00] VITALS: BP 132/66
[2018-05-22] MEDS: SIMVASTATIN 20 MG TABLET PO SCH (21:12)
[2018-05-23] MEDS: PIPERACILLIN /TAZOBACTAM 2.25 G in IV NS 0.9% 50 ML IV SCH ×4 (05:08→23:27)
--- NOTE | 2018-05-23 06:49 | NUR ---
RN CLOSING NOTES PT AWAKE AND RESTING IN BED. PT PRIMARILY GREENLANDIC SPEAKER. NO COMPLAINTS OF PAIN, SOB, OR DISTRESS OVERNIGHT. PT HAS A RIGHT AC #18 RUNNING D5NS @75ML/HR, PT TOLERATING FLUIDS WELL. ALL PATIENT NEEDS MET. SAFETY PRECAUTIONS IN PLACE. BED IN LOWEST LOCKED POSITION, X2 SIDE RAILS UP, AND CALL LIGHT WITHIN REACH. WILL ENDORSE TO DAY SHIFT NURSE FOR CONTINUITY OF CARE.
[2018-05-23] MEDS: IV D5/ 0.9% NACL 1,000 ML IV PRN ×2 (06:57→17:28)
--- NOTE | 2018-05-23 07:10 | NUR ---
ms rn initial notes Received patient in bed, awake, head of bed elevated, no SOB or distress noted, on room air and tolerated well. Bengali speaking alert and oriented x 1, confused. IV intact and patent with IVF infusing well. No complaint of pain or discomfort noted. Call light with in patient reach, will continue to monitor accordingly.
[2018-05-23 08:00] VITALS: BP 137/92
[2018-05-23] MEDS: LEVOTHYROXINE SODIUM 88 MCG TABLET PO SCH (08:29)
[2018-05-23] MEDS: ACIDOPHILUS/BULGARICUS 1 EACH TAB.CHEW PO SCH ×2 (08:29→17:21)
[2018-05-23] MEDS: CLOPIDOGREL BISULFATE 75 MG TABLET PO SCH (08:29)
[2018-05-23] MEDS: LISINOPRIL (5MG) 5 MG TABLET PO SCH (08:30)
[2018-05-23] MEDS: LINAGLIPTIN 5 MG TABLET PO SCH (08:30)
[2018-05-23] MEDS: MULTIVIT, IRON, MIN NO. 8, FA 1 TAB PO SCH (08:30)
[2018-05-23] MEDS: CHOLECALCIFEROL 1,000 UNIT TABLET (VIT D3) PO SCH (08:30)
[2018-05-23] MEDS: METOPROLOL TARTRATE 25 MG TABLET PO SCH ×2 (08:30→21:57)
[2018-05-23] MEDS: PRAZOSIN HCL 1 MG CAPSULE PO SCH (08:31)
[2018-05-23] MEDS: PROSOURCE / PROSTAT (PYXIS) 30 ML UDC GT SCH (08:35)
[2018-05-23 09:03] VITALS: BP 137/72
[2018-05-23] MEDS: POLYETHYLENE GLYCOL 3350 17 GM POWD.PACK PO SCH (11:23)
[2018-05-23 16:00] VITALS: BP 145/78
[2018-05-23 16:20] VITALS: BP 131/69
--- NOTE | 2018-05-23 19:05 | NUR ---
RN OPENING NOTES PT AWAKE AND RESTING IN BED. PT PRIMARILY VIETNAMESE SPEAKER. NO COMPLAINTS OF PAIN, SOB, OR DISTRESS AT THIS TIME. PT HAS A RIGHT AC #18 RUNNING D5NS @75ML/HR, PT TOLERATING FLUIDS WELL. SAFETY PRECAUTIONS IN PLACE. BED IN LOWEST LOCKED POSITION, X2 SIDE RAILS UP, AND CALL LIGHT WITHIN REACH. WILL CONTINUE TO MONITOR.
--- NOTE | 2018-05-23 19:07 | NUR ---
ms rn closing notes All needs provided, attended, and anticipated, endorsed to next shift RN to continue care. Call light with in patient reach. Patient in stable condition at this time.
[2018-05-23 20:00] VITALS: BP 139/49
[2018-05-23] MEDS: SIMVASTATIN 20 MG TABLET PO SCH (21:59)
[2018-05-24] MEDS: PIPERACILLIN /TAZOBACTAM 2.25 G in IV NS 0.9% 50 ML IV SCH ×2 (05:08→11:40)
[2018-05-24] MEDS: IV D5/ 0.9% NACL 1,000 ML IV PRN (05:35)
--- NOTE | 2018-05-24 06:35 | NUR ---
RN CLOSING NOTES PT AWAKE AND RESTING IN BED. PT PRIMARILY CITIZEN OF [place] AND [place] SPEAKER. NO COMPLAINTS OF PAIN, SOB, OR DISTRESS OVERNIGHT. PT HAS A RIGHT AC #18 RUNNING D5NS @75ML/HR, PT TOLERATING FLUIDS WELL. PT HAD A LARGE BOWEL MOVEMENT OVERNIGHT. ALL PATIENT NEEDS MET. SAFETY PRECAUTIONS IN PLACE. BED IN LOWEST LOCKED POSITION, X2 SIDE RAILS UP, AND CALL LIGHT WITHIN REACH. WILL ENDORSE TO DAY SHIFT NURSE FOR CONTINUITY OF CARE.
--- NOTE | 2018-05-24 07:20 | NUR ---
ms rn initial notes Received patient in bed, asleep, head of bed elevated, no SOB or distress noted, on room air and tolerated well. no facial grimace noted. IV intact and patent with IVF infusing well. Call light with in patient reach, will continue to monitor accordingly.
[2018-05-24] MEDS: ACIDOPHILUS/BULGARICUS 1 EACH TAB.CHEW PO SCH (08:13)
[2018-05-24] MEDS: CHOLECALCIFEROL 1,000 UNIT TABLET (VIT D3) PO SCH (08:13)
[2018-05-24] MEDS: MULTIVIT, IRON, MIN NO. 8, FA 1 TAB PO SCH (08:13)
[2018-05-24] MEDS: LEVOTHYROXINE SODIUM 88 MCG TABLET PO SCH (08:13)
[2018-05-24] MEDS: PRAZOSIN HCL 1 MG CAPSULE PO SCH (08:14)
[2018-05-24] MEDS: LINAGLIPTIN 5 MG TABLET PO SCH (08:14)
[2018-05-24] MEDS: LISINOPRIL (5MG) 5 MG TABLET PO SCH (08:14)
[2018-05-24] MEDS: METOPROLOL TARTRATE 25 MG TABLET PO SCH (08:14)
[2018-05-24] MEDS: CLOPIDOGREL BISULFATE 75 MG TABLET PO SCH (08:14)
[2018-05-24] MEDS: PROSOURCE / PROSTAT (PYXIS) 30 ML UDC GT SCH (08:15)
[2018-05-24 08:41] VITALS: BP 118/75
[2018-05-24] MEDS: POLYETHYLENE GLYCOL 3350 17 GM POWD.PACK PO SCH (11:39)
--- NOTE | 2018-05-24 16:10 | NUR ---
ms corn lab technician notes Patient is alert and oriented x 1, confused, not able to understand instructions. called [facility] for report and spoke to Iman and report given. No facial grimace noted. On room air and tolerated well. Pictures taken by cook night RN and filed in the chart. IV kept due to patient getting IV ATB. Discharge paper and belonging list signed by co-RN. Ambulance came to bean picker machine operator the patient going to [facility]. Patient left in stable condition. MD and charge nurse made aware. Flu vaccine is out of season. Pneumonia vaccine not given due to refusal.
== END 2018-05-24 16:15 | DRG 177 ==
LOC: ER 11:20 → TELE 13:14 → MED 05-22 09:17
PROVIDERS: ADMIT Internal Medicine Nephrology; ATTEND Internal Medicine Nephrology
DX: J15.6 Pneumonia due to other Gram-negative bacteria (principal); N17.0 Acute kidney failure with tubular necrosis; E11.22 Type 2 diabetes mellitus with diabetic chronic kidney disease; J15.9 Unspecified bacterial pneumonia; I12.9 Hypertensive chronic kidney disease with stage 1 through stage 4 chronic kidney disease, or unspecified chronic kidney disease; N18.9 Chronic kidney disease, unspecified; F03.90 Unspecified dementia, unspecified severity, without behavioral disturbance, psychotic disturbance, mood disturbance, and anxiety; F29 Unspecified psychosis not due to a substance or known physiological condition; D64.9 Anemia, unspecified; E03.9 Hypothyroidism, unspecified; E78.5 Hyperlipidemia, unspecified; M62.81 Muscle weakness (generalized); Z79.899 Other long term (current) drug therapy; Z79.84 Long term (current) use of oral hypoglycemic drugs
CPT/HCPCS: 36415; 71045-TC; 80048-TC; 80076-TC; 81000-TC; 83605-TC; 84484-TC; 85025-TC; 85730-TC; 87040-TC; 87081-TC; 87086-TC; A4216; A4606; J1956; J2543; J3370; J3490; J7030; J7042; J7060; Z7610

== ENCOUNTER 2018-05-30 13:26 | Inpatient (IN) | payer MEDICARE, OTHER ==
[~2018-05-30] VITALS: Ht 170.2 cm; Wt 71.7 kg
[~2018-05-30 13:26] MED LIST changes: +ACID1TAB12 PO; +LINA5TAB PO; +MAGN400O6 PO; -METF500T PO; +NA P133E RC; -SITA100T PO
--- NOTE | 2018-05-30 13:26 | NUR ---
[id number] [facility]: WEAKNESS, NEAR SYNCOPE. NAD NOTED. RR EVEN AND UNLABORED. VSS. PENDING MD SHER.
[2018-05-30 13:54] LABS: BASOPHILS % (AUTO) 0.7 % (0.0-2.0); EOSINOPHILS % (AUTO) 5.8 % (0.0-6.0); HEMATOCRIT 35 % (39-51); HEMOGLOBIN 11.9 g/dL (13.5-17.5); LYMPHOCYTES # (AUTO) 1.6 /CMM (0.8-4.8); LYMPHOCYTES % (AUTO) 24.7 % (20.0-44.0); MEAN CORPUSCULAR HEMOGLOBIN 33 PG (26.0-33.0); MEAN CORPUSCULAR HGB CONC 34 g/dl (31.0-36.0); MEAN CORPUSCULAR VOLUME 97 fL (80-96); MONOCYTES # (AUTO) 0.5 /CMM (0.1-1.30); MONOCYTES % (AUTO) 7.6 % (2.0-12.0); NEUTROPHILS # (AUTO) 4.2 /CMM (1.8-8.9); NEUTROPHILS % (AUTO) 61.2 % (43.0-81.0); PLATELET COUNT (AUTO) 136 /CMM (150-450); RDW COEFFICIENT OF VARIATION 13.1 (11.5-15.0); RED BLOOD CELL COUNT(AUTO) 3.58 MIL/uL (4.5-6.0); WHITE BLOOD COUNT (AUTO) 6.7 K/uL (4.3-11.0)
[2018-05-30] MEDS ORDERED: IV NS 0.9% 500 ML BAG IV ONE (14:00)
[2018-05-30 14:09] LABS: CALCIUM, SERUM 8.6 mg/dL (8.5-10.1); CARBON DIOXIDE 26 mmol/L (21-32); CHLORIDE 103 mmol/L (98-107); CREATININE 1.5 mg/dL (0.6-1.3); GLUCOSE 217 mg/dL (74-106); POTASSIUM 4.3 mmol/L (3.5-5.1); SODIUM SERUM 135 mmol/L (136-145); UREA NITROGEN, BLOOD 23 mg/dL (7-18)
[2018-05-30 14:16] LABS: ALANINE AMINOTRANSFERASE 20 U/L (12-78); ALKALINE PHOSPHATASE 71 U/L (46-116); ASPARTATE AMINOTRANSFERASE 17 U/L (15-37); BILIRUBIN,DIRECT 0.1 mg/dL (0.0-0.2); BILIRUBIN,TOTAL 0.3 mg/dL (0.2-1.0)
[2018-05-30 14:17] LABS: TROPONIN I < 0.017 ng/mL (0.00-0.056)
[2018-05-30 14:23] LABS: INR 0.95 (0.85-1.15)
--- NOTE | 2018-05-30 16:08 | NUR ---
DR.LEE SMART
--- NOTE | 2018-05-30 16:12 | NUR ---
CALLED NURSING SUP. FOR TELE BED
--- NOTE | 2018-05-30 16:37 | NUR ---
TELE 324-1 FOR SYNCOPE, DR.SORA DUMONT ADMITTING
[2018-05-30 17:45] VITALS: BP 133/74
--- NOTE | 2018-05-30 18:00 | NUR ---
BOOTH CASHIER NOTES PATIENT ADMITTED TO UNIT, ARRIVED AT 1745 VIA GURNEY, REPORT RECEIVED FROM PAUL CALVIN. PATIENT AWAKE, ALERT AND ORIENTED X 1. VERBALLY RESPONSIVE AND RESPONDS TO VERBAL AND TACTILE STIMULI. PATIENT WITH EPISODES OF CONFUSION. NO CHANGES IN LOC NOTED AT THIS TIME. REMAINS CALM AND RELAXED AT THIS TIME. NO AGITATION OR COMBATIVE BEHAVIOR NOTED. PATIENT COOPERATIVE WITH NURSING CARE. PATIENT ADMITTED TO UNIT UNDER MEDICAL SUPERVISION OF DR. OLIVA DUMONT, MADE AWARE OF PATIENT ARRIVAL. PATIENT ON TELEMETRY MONITORING, NSR 65 BPM. IV SITE INTACT AND PATENT, NO SWELLING OR BLEEDING NOTED ON SITE. WILL CONTINUE TO MONITOR. BED LOCKED AND IN LOW POSITION. BED ALARM ON. BILATERAL UPPER SIDE RAILS UP AND LOCKED. CALL LIGHT WITHIN EASY REACH.
--- NOTE | 2018-05-30 18:38 | NUR ---
PERL DEVELOPER NOTES PATIENT RESTING INSIDE ROOM. AWAKE, ALERT AND ORIENTED X 1 WITH EPISODES OF CONFUSION. BREATHING EVEN AND UNLABORED. NO SOB OR ACUTE DISTRESS NOTED. NO CHANGES IN LOC NOTED AT THIS TIME. PATIENT REMAINS CALM AND RELAXED. DENIES ANY PAIN OR DISCOMFORT. WILL ENDORSE TO INCOMING SHIFT FOR SHANNAN. BED LOCKED AND IN LOW POSITION. BILATERAL UPPER SIDE RAILS UP AND LOCKED. CALL LIGHT WITHIN EASY REACH
--- NOTE | 2018-05-30 19:30 | NUR ---
RN NOTES DR. OLIVA DUMONT GAVE AN ADMISSION ORDER, ORDER NOTED AND CARRIED OUT
[2018-05-30 19:51] VITALS: BP 147/88
[2018-05-30 20:00] VITALS: BP 147/88
--- NOTE | 2018-05-30 20:00 | NUR ---
RN NOTES RECEIVED PT. SLEEPING BUT AROUSABLE, A/OX2, BURUNDIAN SPEAKING, SR ON TELE MONITOR, NOT IN DISTRESS, BED IN LOCKED POSITION, CALL LIGHT WITHIN REACH, [id number], CONTINUE TO MONITOR
[2018-05-30] MEDS ORDERED: ACETAMINOPHEN 325 MG TABLET PO PRN (20:30)
[2018-05-30] MEDS ORDERED: IV NS 0.9% 1,000 ML BAG IV SCH (20:30)
[2018-05-30] MEDS ORDERED: ONDANSETRON HCL/PF 4 MG/2 ML VIAL IV PRN (20:30)
[2018-05-30] MEDS: SIMVASTATIN 20 MG TABLET PO SCH (21:50)
[2018-05-30 23:57] VITALS: BP 142/80
[2018-05-31] VITALS (9 sets, daily range): BP systolic 126–159; BP diastolic 70–91
--- NOTE | 2018-05-31 06:44 | NUR ---
RN NOTES SLEEPING BUT AROUSABLE, MORNING CARE RENDERED, CALL LIGHT WITHIN REACH, NOT IN DISTRESS, NO PAIN, NOTED, CALL LIGHT WITHIN REACH, [id number], PT. NEEDS ATTENDED
--- NOTE | 2018-05-31 07:18 | NUR ---
RN OPENING NOTES RECEIVED PATIENT IN BED RESTING. NO ACUTE DISTRESS, NO SOB, DENIED PAIN OR DISCOMFORT AT THIS TIME. ON TELEMETRY SB 52. IV SITE INTACT AND PATENT. KEPT PATIENT SAFE AND COMFORTABLE. BED IN LOW/LOCKED POSITON, SIDERAILS UPX2, CALL LIGHT IN REACH. WILL CONTINUE TO MONITOR ACCORDINGLY.
[2018-05-31 07:28] LABS: CALCIUM, SERUM 8.7 mg/dL (8.5-10.1); CARBON DIOXIDE 22 mmol/L (21-32); CHLORIDE 106 mmol/L (98-107); CREATININE 1.4 mg/dL (0.6-1.3); GLUCOSE 92 mg/dL (74-106); MAGNESIUM 1.7 mg/dL (1.8-2.4); PHOSPHORUS 3.5 mg/dL (2.5-4.9); POTASSIUM 4.2 mmol/L (3.5-5.1); SODIUM SERUM 136 mmol/L (136-145); UREA NITROGEN, BLOOD 22 mg/dL (7-18)
[2018-05-31] MEDS ORDERED: NA PHOS,M-B/NA PHOS,DI-BA 1 EA ENEMA RC PRN (10:00)
[2018-05-31] MEDS ORDERED: ACETAMINOPHEN 325 MG TABLET PO PRN (10:00)
[2018-05-31] MEDS ORDERED: MAGNESIUM HYDROXIDE 30 ML UDC PO PRN (10:00)
[2018-05-31] MEDS: IV NS 0.9% 1,000 ML IV PRN (10:06)
[2018-05-31 10:34] LABS: BASOPHILS % (AUTO) 0.5 % (0.0-2.0); HEMATOCRIT 28 % (39-51); HEMOGLOBIN 10.3 g/dL (13.5-17.5); LYMPHOCYTES # (AUTO) 1.2 /CMM (0.8-4.8); LYMPHOCYTES % (AUTO) 18.1 % (20.0-44.0); MEAN CORPUSCULAR HEMOGLOBIN 35 PG (26.0-33.0); MEAN CORPUSCULAR HGB CONC 37 g/dl (31.0-36.0); MEAN CORPUSCULAR VOLUME 96 fL (80-96); MONOCYTES # (AUTO) 0.5 /CMM (0.1-1.30); MONOCYTES % (AUTO) 7.4 % (2.0-12.0); NEUTROPHILS # (AUTO) 4.7 /CMM (1.8-8.9); PLATELET COUNT (AUTO) 162 /CMM (150-450); RDW COEFFICIENT OF VARIATION 12.8 (11.5-15.0); RED BLOOD CELL COUNT(AUTO) 2.94 MIL/uL (4.5-6.0); WHITE BLOOD COUNT (AUTO) 6.8 K/uL (4.3-11.0)
[2018-05-31] MEDS: POLYETHYLENE GLYCOL 3350 17 GM POWD.PACK PO SCH (11:10)
[2018-05-31] MEDS: Magnesium 1GM/D5W 100ML PREMIX 100 ML IV SCH ×2 (11:10→12:42)
[2018-05-31] MEDS ORDERED: DEXTROSE 50%-WATER 50 ML DISP.SYRIN IV PRN (14:00)
[2018-05-31] MEDS ORDERED: INSULIN REGULAR, HUMAN 100 UNIT/ML 3 ML VIAL SQ PRN (14:00)
[2018-05-31] MEDS: ACIDOPHILUS/BULGARICUS 1 EACH TAB.CHEW PO SCH (16:49)
[2018-05-31] MEDS: BLOOD SUGAR DIAGNOSTIC 1 EACH STRIP IN SCH ×2 (16:49→22:11)
--- NOTE | 2018-05-31 18:40 | NUR ---
RN NOTES UNABLE TO COLLECT URINE. WILL ENDORSED TO NIGHT RN
--- NOTE | 2018-05-31 19:18 | NUR ---
RN CLOSING NOTES PATIENT IN STABLE CONDITION. ALL NEEDS ATTENDED AND PROVIDED. TURNED AND REPOSITIONED PATIENT NEEDED. KEPT PATIENT SAFE AND COMFORTABLE. BED IN LOW/LOCKED POSITION, CALL LIGHT IN REACH, SIDERAILS UPX2. ENDORSED TO NIGHT RN FOR SHANNAN.
--- NOTE | 2018-05-31 19:20 | NUR ---
MS/NAILER HAND OPENING NOTE Patient was seen sleeping in bed, but awoke easily by name. Patient is AAOx2, breathing on RA with no SOB and no signs of acute distress. Telemonitor shows NSR. NS is running at 75ml/hr through the right AC. Bed is in the low/locked position, two side rails up, call fall within reach. Patient has no immediate needs at this time. Will continue to monitor.
[2018-05-31] MEDS: SIMVASTATIN 20 MG TABLET PO SCH (21:56)
[2018-05-31] MEDS: METOPROLOL TARTRATE 25 MG TABLET PO SCH (21:57)
[2018-05-31] MEDS ORDERED: SIMVASTATIN 20 MG TABLET PO SCH (22:00)
[2018-06-01] VITALS: BP 152/79
[2018-06-01] MEDS: IV NS 0.9% 1,000 ML IV PRN (02:42)
[2018-06-01 04:00] VITALS: BP 155/84
[2018-06-01] MEDS: BLOOD SUGAR DIAGNOSTIC 1 EACH STRIP IN SCH ×2 (06:34→12:10)
--- NOTE | 2018-06-01 06:58 | NUR ---
COUNSELOR MANAGER CLOSING NOTE Patient is in bed AAOx1, breathing on RA with no SOB, and no signs of acute distress. Patient slept well overnight with no complaints and no events. Patient remains in stable condition with no immediate needs at this time. Bed is in the low/locked position, two side rails up, call fall within reach. Patient care endorsed to day shift RN.
[2018-06-01 07:20] LABS: CALCIUM, SERUM 8.7 mg/dL (8.5-10.1); CARBON DIOXIDE 21 mmol/L (21-32); CHLORIDE 107 mmol/L (98-107); CREATININE 1.4 mg/dL (0.6-1.3); GLUCOSE 91 mg/dL (74-106); PHOSPHORUS 3.4 mg/dL (2.5-4.9); POTASSIUM 4.2 mmol/L (3.5-5.1); SODIUM SERUM 137 mmol/L (136-145); UREA NITROGEN, BLOOD 26 mg/dL (7-18)
[2018-06-01 07:22] LABS: THYROID STIMULATING HORMONE 7.558 uIU/mL (0.358-3.74)
[2018-06-01] MEDS ORDERED: LEVOTHYROXINE SODIUM 88 MCG TABLET PO SCH (07:30)
--- NOTE | 2018-06-01 07:49 | NUR ---
SHOWROOM CONSULTANT OPENING NOTES RECEIVED PT FROM NIGHTSHIFT NURSE IN STABLE CONDITION. PT IS A/O X1. NO SOB OR SIGNS OF DISTRESS NOTED. PT IS SB ON THE TELE MONITOR WITH A HR OF 58. IV TO RIGHT AC NOTED TO BE PATENT AND INTACT. NO REDNESS OR SIGNS OF INFILTRATION NOTED. PT TOLERATING NS INFUSION WELL. BED IN LOCKED POSITION, SIDE RAILS UP X3, CALL LIGHT WITHIN REACH, BED ALARM ON. WILL CONTINUE TO MONITOR
[2018-06-01 08:00] VITALS: BP 151/72
[2018-06-01 08:17] LABS: BASOPHILS % (AUTO) 0.4 % (0.0-2.0); EOSINOPHILS % (AUTO) 8.3 % (0.0-6.0); HEMATOCRIT 33 % (39-51); HEMOGLOBIN 11.5 g/dL (13.5-17.5); LYMPHOCYTES # (AUTO) 2.3 /CMM (0.8-4.8); LYMPHOCYTES % (AUTO) 24.8 % (20.0-44.0); MEAN CORPUSCULAR HEMOGLOBIN 34 PG (26.0-33.0); MEAN CORPUSCULAR HGB CONC 35 g/dl (31.0-36.0); MEAN CORPUSCULAR VOLUME 97 fL (80-96); MONOCYTES # (AUTO) 0.8 /CMM (0.1-1.30); MONOCYTES % (AUTO) 9.2 % (2.0-12.0); NEUTROPHILS # (AUTO) 5.3 /CMM (1.8-8.9); NEUTROPHILS % (AUTO) 57.3 % (43.0-81.0); RDW COEFFICIENT OF VARIATION 12.7 (11.5-15.0); RED BLOOD CELL COUNT(AUTO) 3.42 MIL/uL (4.5-6.0); WHITE BLOOD COUNT (AUTO) 9.2 K/uL (4.3-11.0)
[2018-06-01 08:20] LABS: PLATELET COUNT (AUTO) 153 /CMM (150-450)
[2018-06-01] MEDS: ACIDOPHILUS/BULGARICUS 1 EACH TAB.CHEW PO SCH (08:49)
[2018-06-01] MEDS: METOPROLOL TARTRATE 25 MG TABLET PO SCH (08:49)
[2018-06-01] MEDS ORDERED: CLOPIDOGREL BISULFATE 75 MG TABLET PO SCH (09:00)
[2018-06-01] MEDS ORDERED: LINAGLIPTIN 5 MG TABLET PO SCH (09:00)
[2018-06-01] MEDS ORDERED: PRAZOSIN HCL 1 MG CAPSULE PO SCH (09:00)
[2018-06-01] MEDS ORDERED: LISINOPRIL (5MG) 5 MG TABLET PO SCH (09:00)
[2018-06-01] MEDS ORDERED: MUPIROCIN OINT 2% 22 GM TUBE SCH (09:00)
[2018-06-01] MEDS ORDERED: MULTIVITAMINS,THERAGRAN 1 UDTAB TABLET PO SCH (09:00)
[2018-06-01] MEDS ORDERED: CHOLECALCIFEROL 1,000 UNIT TABLET (VIT D3) PO SCH (09:00)
[2018-06-01] MEDS: POLYETHYLENE GLYCOL 3350 17 GM POWD.PACK PO SCH (10:16)
[2018-06-01 12:00] VITALS: BP 123/67
[2018-06-01 16:00] VITALS: BP 116/60
--- NOTE | 2018-06-01 17:30 | NUR ---
MEDICAL REVIEWERWEARING APPAREL FOLDER NOTES PT WAS DISCHARGED FROM FACILITY TO [facility] IN STABLE CONDITION. REPORT CALLED AND GIVEN TO LAURA THE RECEIVING NURSE,. ALL PT NEEDS WERE ANTICIPATED FOR AND MET. ALL DUE MEDS GIVEN. AM AND PRN CARE RENDERED. PT WAS REPOSITIONED AND TURNED PER HOSPITAL PROTOCOL. IV WAS SUCCESSFULLY REMOVED WITH CATHETER TIP INTACT. NO COMPLICATIONS NOTED. BELONGINGS VERIFIED PRIOR TO D/C. PT UNABLE TO SIGNS D/C PAPERWORK DUE TO MENTAL STATUS. MYSELF AND A FELLOW RN SIGNED ALL D/C PAPERWORK. COPIES BETTENCOURT AND PLACED IN CHART., D/C PHOTOS TAKEN AND PLACED IN CHART. PT WAS SAFELY TRANSFERRED FROM BED TO AMBULANCE [facility] AND LEFT WITH ALL BELONGINGS
== END 2018-06-01 17:25 | DRG 74 ==
LOC: ER 13:32 → TELE 17:20
PROVIDERS: ADMIT Internal Medicine Nephrology; ATTEND Internal Medicine Nephrology
DX: G90.8 Other disorders of autonomic nervous system (principal); E03.9 Hypothyroidism, unspecified; E78.5 Hyperlipidemia, unspecified; I12.9 Hypertensive chronic kidney disease with stage 1 through stage 4 chronic kidney disease, or unspecified chronic kidney disease; I25.10 Atherosclerotic heart disease of native coronary artery without angina pectoris; F03.90 Unspecified dementia, unspecified severity, without behavioral disturbance, psychotic disturbance, mood disturbance, and anxiety; M62.81 Muscle weakness (generalized); F29 Unspecified psychosis not due to a substance or known physiological condition; D64.9 Anemia, unspecified; R53.81 Other malaise; N18.3 Chronic kidney disease, stage 3 (moderate); E11.22 Type 2 diabetes mellitus with diabetic chronic kidney disease
CPT/HCPCS: 36415; 70450-TC; 71045-TC; 80048-TC; 80076-TC; 82962-TC; 83735-TC; 84100-TC; 84439-TC; 84443-TC; 84484-TC; 85025-TC; 85730-TC; 87081-TC; 93307-TC; 93880-TC; A4606; J1815; J3475; J7030; Z7610

== ENCOUNTER 2018-06-18 12:51 | Inpatient (IN) | payer MEDICARE, OTHER ==
[~2018-06-18] VITALS: Ht 154.9 cm; Wt 70.3 kg
[~2018-06-18 12:51] MED LIST changes: -AMIN30LI4 PO; -CRAN1TAB3 PO
--- NOTE | 2018-06-18 13:00 | NUR ---
AAOX2, BIB [facility] S/P SYNCOPAL EPISODE. ROMANIAN SPEAKING ONLY. PLACED ON MONITOR AND HOSPITAL GOWN. AWAITING MD FOR EVAL.
[2018-06-18] MEDS ORDERED: AMIN30LI4 PO (13:05)
[2018-06-18] MEDS ORDERED: INSU100V3 SQ (13:05)
[2018-06-18] MEDS ORDERED: BLOO-668 IN (13:05)
[2018-06-18] MEDS ORDERED: IV NS 0.9% 1,000 ML BAG IV ONE ×2 (13:30→15:00)
[2018-06-18 13:45] LABS: BASOPHILS % (AUTO) 0.5 % (0.0-2.0); EOSINOPHILS % (AUTO) 4.4 % (0.0-6.0); HEMATOCRIT 38 % (39-51); HEMOGLOBIN 13.1 g/dL (13.5-17.5); LYMPHOCYTES # (AUTO) 1.1 /CMM (0.8-4.8); LYMPHOCYTES % (AUTO) 14.4 % (20.0-44.0); MEAN CORPUSCULAR HEMOGLOBIN 34 PG (26.0-33.0); MEAN CORPUSCULAR HGB CONC 34 g/dl (31.0-36.0); MEAN CORPUSCULAR VOLUME 99 fL (80-96); MONOCYTES # (AUTO) 0.7 /CMM (0.1-1.30); MONOCYTES % (AUTO) 8.7 % (2.0-12.0); NEUTROPHILS # (AUTO) 5.5 /CMM (1.8-8.9); RDW COEFFICIENT OF VARIATION 13.5 (11.5-15.0); RED BLOOD CELL COUNT(AUTO) 3.86 MIL/uL (4.5-6.0); WHITE BLOOD COUNT (AUTO) 7.7 K/uL (4.3-11.0)
[2018-06-18 13:52] LABS: CALCIUM, SERUM 8.9 mg/dL (8.5-10.1); CARBON DIOXIDE 23 mmol/L (21-32); CHLORIDE 100 mmol/L (98-107); CREATININE 1.8 mg/dL (0.6-1.3); GLUCOSE 159 mg/dL (74-106); POTASSIUM 4.8 mmol/L (3.5-5.1); SODIUM SERUM 131 mmol/L (136-145); UREA NITROGEN, BLOOD 38 mg/dL (7-18)
[2018-06-18 13:57] LABS: ALANINE AMINOTRANSFERASE 22 U/L (12-78); ALBUMIN 3.4 g/dL (3.4-5.0); ALKALINE PHOSPHATASE 84 U/L (46-116); ASPARTATE AMINOTRANSFERASE 19 U/L (15-37); BILIRUBIN,DIRECT 0.1 mg/dL (0.0-0.2); BILIRUBIN,TOTAL 0.3 mg/dL (0.2-1.0); TOTAL PROTEIN, SERUM 7.3 g/dL (6.4-8.2)
[2018-06-18 13:58] LABS: INR 0.94 (0.85-1.15)
[2018-06-18 13:59] LABS: TROPONIN I < 0.017 ng/mL (0.00-0.056)
[2018-06-18 14:10] LABS: PLATELET COUNT (AUTO) 184 /CMM (150-450)
[2018-06-18] MEDS ORDERED: IV NS 0.9% 500 ML BAG IV ONE (15:00)
--- NOTE | 2018-06-18 16:11 | NUR ---
CALLED [facility],RUBY DEVELOPER WAS PAGED.
--- NOTE | 2018-06-18 17:40 | NUR ---
REPORT GIVEN TO NIKUNJ MOELLER FOR SHANNAN TELE 321-2
--- NOTE | 2018-06-18 18:30 | NUR ---
LOADING UNIT TOOL SETTER NOTES PATIENT ADMITTED TO UNIT. ARRIVED AT 1800 VIA GURNEY. REPORT RECEIVED FROM PITA CALVIN. PATIENT AWAKE, ALERT AND ORIENTED X 2. VERBALLY RESPONSIVE AND RESPONDS TO VERBAL AND TACTILE STIMULI. BREATHING EVEN AND UNLABORED. NO SOB OR ACUTE DISTRESS NOTED. PATIENT AFEBRILE, SKIN DRY AND WARM TO TOUCH. NO CHANGES IN LOC NOTED AT THIS TIME. PATIENT CALM AND RELAXED. PATIENT ADMITTED TO TELEMETRY UNDER DR. BISMARK CANTOR. MADE AWARE OF PATIENT ARRIVAL AT UNIT. IV SITE INTACT AND PATENT. NO SWELLING OR BLEEDING NOTED ON SITE. WILL CONTINUE TO MONITOR. BED LOCKED AND IN LOW POSITION. BILATERAL UPPER SIDE RAILS UP AND LOCKED. CALL LIGHT WITHIN EASY REACH
--- NOTE | 2018-06-18 19:10 | NUR ---
TELE/RN NOTES RECEIVED PT. LYING IN BED. PT IS AWAKE, ALERT AND ORIENTED TO SELF. BREATHING EVEN AND UNLABORED ON ROOM AIR. NO SOB, RESPIRATORY DISTRESS OR S/S OF PAIN NOTED AT THIS TIME. PT. WITH EXTERNAL WAITER/WAITRESS TOURIST CLASS PRESENT AND INTACT CURRENT RHYTHM = SINUS RHYTHM HR 76. PT. WITH LEFT AC 18 GAUGE IV SALINE LOCK PRESENT, PATENT AND INTACT. PT. SON PRESENT AT BEDSIDE. BED LOCKED AND IN LOWEST POSITION, SIDE RAILS UP X3, BED ALARM ON, CALL LIGHT WITHIN REACH, WILL CONTINUE TO MONITOR.
[2018-06-18 20:00] VITALS: BP 157/89
[2018-06-18] MEDS ORDERED: DEXTROSE 50%-WATER 50 ML DISP.SYRIN IV PRN (20:30)
[2018-06-18] MEDS ORDERED: INSULIN REGULAR, HUMAN 100 UNIT/ML 3 ML VIAL SQ PRN (20:30)
[2018-06-18] MEDS: IV NS 0.9% 1,000 ML IV PRN (21:14)
[2018-06-18] MEDS: METOPROLOL TARTRATE 25 MG TABLET PO SCH (21:16)
[2018-06-18] MEDS: BLOOD SUGAR DIAGNOSTIC 1 EACH STRIP IN SCH (21:43)
[2018-06-18] MEDS ORDERED: SIMVASTATIN 20 MG TABLET PO SCH (22:00)
[2018-06-19] VITALS: BP 140/98
[2018-06-19 04:00] VITALS: BP 153/86
[2018-06-19] MEDS: BLOOD SUGAR DIAGNOSTIC 1 EACH STRIP IN SCH ×4 (06:48→21:38)
--- NOTE | 2018-06-19 07:04 | NUR ---
TELE/RN NOTES PT. IS LYING IN BED, AWAKE, ALERT AND ORIENTED TO SELF. BREATHING EVEN AND UNLABORED ON ROOM AIR. NO SOB, RESPIRATORY DISTRESS OR S/S OF PAIN NOTED AT THIS TIME AND THROUGHOUT SHIFT. PT. WITH EXTERNAL GROUP CONTROLLER PRESENT AND INTACT CURRENT RHYTHM = SINUS RHYTHM HR 66. PT. WITH RIGHT UPPER ARM 22 GAUGE PERIPHERAL IV PRESENT, PATENT AND INTACT ADMINISTERING TO PT. NS @85 ML/HR. ALL PT. NEEDS MET. BED LOCKED AND IN LOWEST POSITION, SIDE RAILS UP X3, BED ALARM ON, CALL LIGHT WITHIN REACH, WILL ENDORSE TO DAYSHIFT NURSE FOR CONTINUITY OF CARE.
[2018-06-19 07:11] LABS: BASOPHILS # (AUTO) 0.1 /CMM (0.0-0.2); BASOPHILS % (AUTO) 0.6 % (0.0-2.0); EOSINOPHILS % (AUTO) 5.3 % (0.0-6.0); HEMATOCRIT 35 % (39-51); HEMOGLOBIN 12.1 g/dL (13.5-17.5); LYMPHOCYTES # (AUTO) 1.9 /CMM (0.8-4.8); MEAN CORPUSCULAR HEMOGLOBIN 34 PG (26.0-33.0); MEAN CORPUSCULAR HGB CONC 34 g/dl (31.0-36.0); MEAN CORPUSCULAR VOLUME 99 fL (80-96); MONOCYTES # (AUTO) 0.9 /CMM (0.1-1.30); MONOCYTES % (AUTO) 8.5 % (2.0-12.0); NEUTROPHILS # (AUTO) 7.2 /CMM (1.8-8.9); NEUTROPHILS % (AUTO) 67.6 % (43.0-81.0); RDW COEFFICIENT OF VARIATION 13.8 (11.5-15.0); RED BLOOD CELL COUNT(AUTO) 3.57 MIL/uL (4.5-6.0); WHITE BLOOD COUNT (AUTO) 10.7 K/uL (4.3-11.0)
[2018-06-19 07:32] LABS: PLATELET COUNT (AUTO) 187 /CMM (150-450)
[2018-06-19 07:43] LABS: CALCIUM, SERUM 8.2 mg/dL (8.5-10.1); CARBON DIOXIDE 21 mmol/L (21-32); CHLORIDE 107 mmol/L (98-107); CREATININE 1.4 mg/dL (0.6-1.3); GLUCOSE 100 mg/dL (74-106); POTASSIUM 4.6 mmol/L (3.5-5.1); SODIUM SERUM 137 mmol/L (136-145); UREA NITROGEN, BLOOD 29 mg/dL (7-18)
[2018-06-19 07:50] LABS: TROPONIN I < 0.017 ng/mL (0.00-0.056)
[2018-06-19 08:00] VITALS: BP 146/69
[2018-06-19] MEDS ORDERED: NA PHOS,M-B/NA PHOS,DI-BA 1 EA ENEMA RC PRN (08:00)
[2018-06-19] MEDS ORDERED: ACETAMINOPHEN 325 MG TABLET PO PRN (08:00)
[2018-06-19] MEDS ORDERED: MAGNESIUM HYDROXIDE 30 ML UDC PO PRN (08:00)
--- NOTE | 2018-06-19 08:00 | NUR ---
TELE/RN AM NOTES PT. IS LYING IN BED, AWAKE, ALERT AND ORIENTED TO SELF. COMBATIVE DURING ADL CARE AT TIMES INSPITE OF GENTLE APPROACH-WILL INFORM MD FOR 1:1 SITTER.BREATHING EVEN AND UNLABORED ON ROOM AIR. NO SOB, RESPIRATORY DISTRESS OR S/S OF PAIN NOTED AT THIS TIME.WITH EXTERNAL HARDWARE INSTALLATION COORDINATOR PRESENT AND INTACT CURRENT RHYTHM = SINUS RHYTHM HR 65. PT. WITH RIGHT UPPER ARM 22 GAUGE PERIPHERAL IV PRESENT, PATENT AND INTACT ADMINISTERING TO PT. NS @85 ML/HR. PT COMPLIANT AND REORIENTATION GIVEN.BED LOCKED AND IN LOWEST POSITION, SIDE RAILS UP X3, BED ALARM ON, CALL LIGHT WITHIN REACH,
[2018-06-19 08:22] LABS: IRON, SERUM 121 ug/dl (50-175); TOTAL IRON BINDING CAPACITY 247 ug/dl (250-450)
[2018-06-19 08:40] LABS: TROPONIN I < 0.017 ng/mL (0.00-0.056)
[2018-06-19] MEDS ORDERED: METOPROLOL TARTRATE 25 MG TABLET PO SCH (09:00)
[2018-06-19] MEDS ORDERED: PRAZOSIN HCL 1 MG CAPSULE PO SCH (09:00)
[2018-06-19] MEDS ORDERED: LISINOPRIL (5MG) 5 MG TABLET PO SCH (09:00)
[2018-06-19] MEDS: CHOLECALCIFEROL 1,000 UNIT TABLET (VIT D3) PO SCH (09:17)
[2018-06-19] MEDS: CLOPIDOGREL BISULFATE 75 MG TABLET PO SCH (09:18)
[2018-06-19] MEDS: ACIDOPHILUS/BULGARICUS 1 EACH TAB.CHEW PO SCH ×2 (09:18→17:41)
[2018-06-19] MEDS: METOPROLOL TARTRATE 25 MG TABLET PO SCH ×2 (09:18→21:34)
[2018-06-19] MEDS: LINAGLIPTIN 5 MG TABLET PO SCH (09:18)
[2018-06-19] MEDS: PROSOURCE / PROSTAT (PYXIS) 30 ML UDC PO SCH (09:27)
[2018-06-19] MEDS: MULTIVITAMINS,THERAGRAN 1 UDTAB TABLET PO SCH (09:27)
[2018-06-19] MEDS: LEVOTHYROXINE SODIUM 88 MCG TABLET PO SCH (09:27)
[2018-06-19 09:44] LABS: CHOLESTEROL 135 mg/dL (<200); FERRITIN 263 ng/mL (8-388); HDL CHOLESTEROL 26 mg/dL (40-60); LDL 103 mg/dL (0-99); MAGNESIUM 2.1 mg/dL (1.8-2.4); PHOSPHORUS 2.9 mg/dL (2.5-4.9); TRIGLYCERIDES 25 mg/dL (30-150)
[2018-06-19] MEDS: POLYETHYLENE GLYCOL 3350 17 GM POWD.PACK PO SCH (11:17)
[2018-06-19] MEDS: IV NS 0.9% 1,000 ML IV PRN ×2 (11:18→19:06)
[2018-06-19 12:00] VITALS: BP 112/59
[2018-06-19] MEDS ORDERED: BLOOD SUGAR DIAGNOSTIC 1 EACH STRIP IN SCH (12:00)
[2018-06-19 16:00] VITALS: BP 129/72
--- NOTE | 2018-06-19 18:43 | NUR ---
PT'S SON,YANET SPICERJR WANTS DNR/DNI STATUS ON THE PT.CLARIFIED WITH DR PINTO AND CARRIED OUT.
--- NOTE | 2018-06-19 20:13 | NUR ---
MS AUTOMATIC PAD MAKING MACHINE OPERATOR INITIAL NOTES PT SEEN IN BED AWAKE AND ALERT NO SIGNS OF ANY AGITATION AT THIS TIME, INTERACT WHEN YOU ASK SOMETHING. IVF NS AT 125ML/HR STILL INFUSING ON HIS RIGHT UPPER ARM , PATENT AND INTACT. RESPIRATION EVEN AND NON-LABORED. KEPT HIM WARM AND COMFORTABLE AT ALL TIMES. SITTER AT THE BEDSIDE FOR SAFETY. WILL CONTINUE TO MONITOR.
--- NOTE | 2018-06-19 22:27 | NUR ---
MS WHITE WORK CLEANER NOTES BLOOD SUGAR CHECKED DONE 93 NO INSULIN COVERAGE GIVEN ORDERED. NO SIGNS OF HYPO GLYCEMIA NOTED. PT STILL ON IVF. WILL CONTINUE MONITORING.
[2018-06-20] MEDS: BLOOD SUGAR DIAGNOSTIC 1 EACH STRIP IN SCH ×2 (06:13→12:09)
[2018-06-20] MEDS: IV NS 0.9% 1,000 ML IV PRN (06:13)
[2018-06-20] MEDS: LEVOTHYROXINE SODIUM 88 MCG TABLET PO SCH (06:19)
--- NOTE | 2018-06-20 07:15 | NUR ---
MS GRAVITY PROSPECTING SUPERVISOR CLOSING NOTES PT RESTING COMFORTABLY IN BED WITHOUT ANY ACUTE DISTRESS NOTED . NO SIGNS OF ANY DISCOMFORT. STABLE DIANNE THE NIGHT AND NO AGITATION. SLEPT ON AND OFF. IVF STILL INFUSING ON HIS RIGHT UPPER ARM BLOOD SUGAR CHECKED DONE 127 NO INSULIN GIVEN ORDERED. NO SIGNS OF HYPO GLYCEMIA NOTED. SITTER AT THE BEDSIDE FOR SAFETY. ENDORSE TO AM NURSE FOR CONTINUITY OF CARE.
--- NOTE | 2018-06-20 07:22 | NUR ---
RN OPENING NOTES RECEIVED PATIENT IN BED RESTING. A/OX1, CONFUSED, THAI SPEAKING. NO SIGNS OF ANY AGITATION AT THIS TIME. NO ACUTE DISTRESS, NO SOB. NO S/S OF PAIN OR DISCOMFORT. IVF NS AT 125ML/HR STILL INFUSING ON HIS RIGHT UPPER ARM , PATENT AND INTACT. KEPT PATIENT SAFE AND COMFORTABLE. SITTER AT THE BEDSIDE FOR SAFETY.BED IN LOW/LOCKED POSITION, SIDERAILS UPX2, BED ALARM ON, CALL LIGHT IN REACH. WILL CONTINUE TO MONITOR ACCORDINGLY.
[2018-06-20 07:40] VITALS: BP 115/57
[2018-06-20 08:00] VITALS: BP 118/57
[2018-06-20] MEDS: CLOPIDOGREL BISULFATE 75 MG TABLET PO SCH (08:11)
[2018-06-20] MEDS: LINAGLIPTIN 5 MG TABLET PO SCH (08:11)
[2018-06-20] MEDS: ACIDOPHILUS/BULGARICUS 1 EACH TAB.CHEW PO SCH (08:11)
[2018-06-20] MEDS: MULTIVITAMINS,THERAGRAN 1 UDTAB TABLET PO SCH (08:12)
[2018-06-20] MEDS: CHOLECALCIFEROL 1,000 UNIT TABLET (VIT D3) PO SCH (08:12)
[2018-06-20 08:13] VITALS: BP 117/60
[2018-06-20] MEDS: METOPROLOL TARTRATE 25 MG TABLET PO SCH (08:13)
[2018-06-20] MEDS: PROSOURCE / PROSTAT (PYXIS) 30 ML UDC PO SCH (08:13)
[2018-06-20 08:21] LABS: TROPONIN I 0.021 ng/mL (0.00-0.056)
[2018-06-20 08:36] LABS: BASOPHILS % (AUTO) 0.3 % (0.0-2.0); EOSINOPHILS % (AUTO) 9.5 % (0.0-6.0); HEMATOCRIT 32 % (39-51); HEMOGLOBIN 10.9 g/dL (13.5-17.5); LYMPHOCYTES # (AUTO) 1.4 /CMM (0.8-4.8); LYMPHOCYTES % (AUTO) 24.6 % (20.0-44.0); MEAN CORPUSCULAR HEMOGLOBIN 34 PG (26.0-33.0); MEAN CORPUSCULAR HGB CONC 34 g/dl (31.0-36.0); MEAN CORPUSCULAR VOLUME 98 fL (80-96); MONOCYTES # (AUTO) 0.6 /CMM (0.1-1.30); MONOCYTES % (AUTO) 10.3 % (2.0-12.0); NEUTROPHILS % (AUTO) 55.3 % (43.0-81.0); PLATELET COUNT (AUTO) 152 /CMM (150-450); RDW COEFFICIENT OF VARIATION 13.4 (11.5-15.0); RED BLOOD CELL COUNT(AUTO) 3.26 MIL/uL (4.5-6.0); WHITE BLOOD COUNT (AUTO) 5.5 K/uL (4.3-11.0)
[2018-06-20 08:39] LABS: ALANINE AMINOTRANSFERASE 20 U/L (12-78); ALKALINE PHOSPHATASE 78 U/L (46-116); ASPARTATE AMINOTRANSFERASE 22 U/L (15-37); BILIRUBIN,TOTAL 0.6 mg/dL (0.2-1.0); CALCIUM, SERUM 8.1 mg/dL (8.5-10.1); CARBON DIOXIDE 24 mmol/L (21-32); CHLORIDE 107 mmol/L (98-107); CREATININE 1.5 mg/dL (0.6-1.3); GLUCOSE 102 mg/dL (74-106); MAGNESIUM 1.7 mg/dL (1.8-2.4); PHOSPHORUS 3.2 mg/dL (2.5-4.9); SODIUM SERUM 138 mmol/L (136-145); TOTAL PROTEIN, SERUM 6.5 g/dL (6.4-8.2); UREA NITROGEN, BLOOD 27 mg/dL (7-18)
[2018-06-20] MEDS: POLYETHYLENE GLYCOL 3350 17 GM POWD.PACK PO SCH (10:54)
--- NOTE | 2018-06-20 15:40 | NUR ---
DISCHARGE NOTES DISCHARGED PATIENT IN STABLE CONDITION, PICKED UP BY [employer], DISCHARGE PAPERWORK GIVEN. CALLED REPORT TO NIKUNJ HOLCOMB AT [facility]– [place]NOTE 2], DISCHARGE INSTRUCTIONS GIVEN, VERBALIZED UNDERSTANDING. ALL BELONGINGS RETURNED. REMOVED IV, APPLIED PRESSURE, NO BLEEDING, NO COMPLICATIONS. REMOVED NAME BAND.
== END 2018-06-20 15:45 | DRG 684 ==
LOC: ER 12:51 → TELE 15:14 → MED 06-19 09:18
PROVIDERS: ADMIT Internal Medicine; ATTEND Internal Medicine
DX: N17.9 Acute kidney failure, unspecified (principal); E11.22 Type 2 diabetes mellitus with diabetic chronic kidney disease; E78.5 Hyperlipidemia, unspecified; E03.9 Hypothyroidism, unspecified; F03.90 Unspecified dementia, unspecified severity, without behavioral disturbance, psychotic disturbance, mood disturbance, and anxiety; I12.9 Hypertensive chronic kidney disease with stage 1 through stage 4 chronic kidney disease, or unspecified chronic kidney disease; N18.9 Chronic kidney disease, unspecified; H70.11 Chronic mastoiditis, right ear; Z79.899 Other long term (current) drug therapy; Z79.84 Long term (current) use of oral hypoglycemic drugs; F29 Unspecified psychosis not due to a substance or known physiological condition; D64.9 Anemia, unspecified; Z79.4 Long term (current) use of insulin; E86.0 Dehydration
CPT/HCPCS: 36415; 70450-TC; 71045-TC; 80048-TC; 80053-TC; 80061-TC; 80076-TC; 82306; 82728-TC; 82962-TC; 83540-TC; 83605-TC; 83735-TC; 84100-TC; 84439-TC; 84443-TC; 84484-TC; 85025-TC; 85730-TC; 87040-TC; 87081-TC; 93307-TC; A4606; J1815; J7030; J7040; Z7610